=== PATIENT | male | born 1950 | race African-American/Black ===

== ENCOUNTER 2018-08-31 18:24 | Inpatient (IN) | payer MEDICARE ==
[~2018-08-31 18:24] MED LIST: ISOVUE-370 76%-LOCM 1 ML ONE
[2018-08-31] MEDS ORDERED: Pantoprazole 40 MG VIAL ONE (19:02)
[2018-08-31 19:29] LABS: #Monocytes 0.3 thou/uL (0.11-0.59); %Basophils 0.4 % (0.0-1.0); %Eosinophils 0.3 % (0.0-10.0); %Lymphocytes 10.9 % (21.0-51.0); %Monocytes 3.1 % (0.0-10.0); %Neutrophils 85.4 % (42.0-75.0); Hemoglobin 14.9 g/dL (14.0-18.0); Mean Corpuscular HGB CONC 31.9 g/dL (32.0-36.0); Mean Corpuscular Hemoglobin 26.9 pg (27.0-31.0); Mean Corpuscular Volume 84.4 fL (78.0-98.0); Mean Platelet Volume 8.5 fL (7.4-10.4); Platelet Count 218 thou/uL (130-400); RBC Distribution Width 13.4 % (11.5-14.5); Red Blood Cell (RBC) Count 5.54 mill/uL (4.70-6.10); White Blood Cell (WBC) Count 9.4 thou/uL (4.8-10.8)
[2018-08-31 19:45] LABS: ALT (SGPT) 19 U/L (8-55); AST (SGOT) 24 U/L (5-34); Albumin 4.8 g/dL (3.4-4.8); Alkaline Phosphatase 103 U/L (40-150); Anion Gap 19 mmol/L (10-20); BUN (Urea Nitrogen) 20 mg/dL (8.4-25.7); Calc. Creatinine Clearance 0 mL/min (70-130); Calcium 10.3 mg/dL (7.8-10.44); Carbon Dioxide 23 mmol/L (23-31); Chloride 98 mmol/L (98-107); Estimated GFR-MDRD 61; Globulin 3.9 g/dL (2.4-3.5); Glucose 169 mg/dL (80-115); Lipase 24 U/L (8-78); Potassium 4.8 mmol/L (3.5-5.1); Protein, Total 8.7 g/dL (5.8-8.1); Sodium 135 mmol/L (136-145)
--- NOTE | 2018-08-31 20:28 | ULT ---
RIGHT UPPER QUADRANT ULTRASOUND: 08/31/18 COMPARISON: None. HISTORY: Pain. TECHNIQUE: Multiplanar rubi scale sonographic imaging of the right upper quadrant obtained. FINDINGS: Pancreas is not well visualized secondary to bowel gas. No focal liver lesion is evident. There is trace free fluid adjacent to the liver. No gallbladder wall thickening or pericholecystic fluid. No gallstones are seen. The common bile duct measures 5 mm, within normal limits. Right kidney measures 9.4 cm craniocaudal dimension and demonstrates no stone, hydronephrosis or mass . Trace ascites noted in right lower quadrant. Prominent loops of small bowel are seen in the lower abd omen. The design chief reports a negative Tapia's sign. IMPRESSION: Small volume free fluid adjacent to the liver. No evidence for cholelithiasis, cholecystitis or bilia ry dilatation. POS: [facility]
--- NOTE | 2018-08-31 20:48 | CT ---
CT ABDOMEN AND PELVIS WITH IV CONTRAST 08/31/18 HISTORY: Abdominal pain. Nausea and vomiting. FINDINGS: Mild atelectasis at the lung bases. Calcified granulomata throughout the solid organs. Tiny cysts of the left kidney. Pancreas is diffusely prominent without focal mass evident. Moderately dilated loops of small bowel within the left abdomen measures up to 3 cm diameter. There is transition to decompre ssed bowel, favored to be in the left mid abdomen. Small amount of free fluid within the left lateral abdomen. IMPRESSION: High grade recent onset proximal to mid small bowel obstruction. Transition point favored to be withi n the left abdomen. Cause is not readily apparent. Possible adhesion. POS: [facility]
[2018-08-31] MEDS ORDERED: Ondansetron HCl/PF 4 MG/2 ML Vial ONE (21:11)
[2018-08-31] MEDS ORDERED: Morphine 2 MG/ML SYRINGE ONE (21:19)
[2018-08-31] MEDS ORDERED: Dextrose 50% Abboject 50 ML SYRINGE SLOW IVP PRN (21:28)
[2018-08-31] MEDS ORDERED: Dextrose 5% in Water 1,000 ML IV PRN (21:28)
[2018-08-31] MEDS ORDERED: HumaLOG 300 UNITS/3 ML VIAL SC PRN (21:28)
[2018-08-31] MEDS: Sodium Chloride 0.9% 1,000 ML IV SCH (23:22)
[2018-08-31] MEDS: Ondansetron HCl/PF 4 MG/2 ML Vial IVP PRN (23:22)
[2018-08-31] MEDS: Morphine 2 MG/ML SYRINGE SLOW IVP PRN (23:55)
[2018-09-01 01:34] VITALS: BMI 30.7
[2018-09-01] MEDS: Morphine 2 MG/ML SYRINGE SLOW IVP PRN ×3 (04:01→12:14)
[2018-09-01] MEDS ORDERED: Levothyroxine 100 MCG SDV IVP SCH (06:00)
[2018-09-01 06:21] LABS: #Lymphocytes 1.3 thou/uL (1.20-3.40); #Monocytes 0.7 thou/uL (0.11-0.59); #Neutrophils 7.3 thou/uL (1.40-6.50); %Basophils 0.3 % (0.0-1.0); %Eosinophils 0.3 % (0.0-10.0); %Monocytes 7.6 % (0.0-10.0); %Neutrophils 77.7 % (42.0-75.0); Hemoglobin 14.1 g/dL (14.0-18.0); Mean Corpuscular Hemoglobin 26.9 pg (27.0-31.0); Mean Corpuscular Volume 84.2 fL (78.0-98.0); Mean Platelet Volume 8.6 fL (7.4-10.4); Platelet Count 215 thou/uL (130-400); RBC Distribution Width 13.3 % (11.5-14.5); Red Blood Cell (RBC) Count 5.25 mill/uL (4.70-6.10); White Blood Cell (WBC) Count 9.4 thou/uL (4.8-10.8)
--- NOTE | 2018-09-01 06:30 | HP ---
CHIEF COMPLAINT: Right-sided abdominal pain. HISTORY OF PRESENT ILLNESS: This is a 67-year-old male with past medical history of diabetes mellitu s type 2, hypertension, hypothyroidism, presenting with right-sided abdominal pain. Per the patient, the night prior to admission, he ate a lot of Nachos and he feels like he ate a lot of it and when kobe barker woke up in the morning around 4:00 a.m., he started having severe abdominal pain which the patient stated that he vomited nonbilious, nonbloody vomitus and patient then became very uncomfortable and h is pain became uncontrollable. Patient states that he then [facility] and kaylie robles was given Zofran; however, after taking Zofran, patient did not feel better. Patient also state d that the ED physician at the local emergency room that he went to told that his pain was coming fro m his gallbladder; however, because patient did not feel better after taking Zofran and things were n ot improving, prompted the patient to come to our ED and patient currently denies any fever, headache s, dizziness, chest pain, palpitation, hematuria, hematochezia, diarrhea, constipation; however, the patient endorses right-sided abdominal pain. REVIEW OF SYSTEMS: Positive for nausea, right-sided abdominal pain, otherwise as documented in the H PI, all other systems were reviewed and are negative. PAST MEDICAL HISTORY: Diabetes mellitus type 2, hypertension, hypothyroidism. FAMILY HISTORY: Reviewed and noncontributory. PAST SURGICAL HISTORY: Patient had a hernia repair when he was 7 years old. PSYCHIATRIC HISTORY: No previous psychiatric history. SOCIAL HISTORY: Patient denies alcohol use, illicit drug use and tobacco use. ALLERGIES: No known drug allergies. CURRENT MEDICATIONS: Patient takes metformin 1000 mg, glipizide, lisinopril 10 mg, hydrochlorothiazi de, hydralazine, levothyroxine 100 mcg, finasteride, potassium chloride, aspirin. PHYSICAL EXAMINATION: VITAL SIGNS: Blood pressure is 184/106, pulse is 64, respiratory rate of 16, temperature of 98.3, O2 saturation of 97%. GENERAL: Patient is lying in bed with NG tube in place, speaking in full sentences, does not appear to be in any acute distress. HEENT: Normocephalic, atraumatic. Pupils are equally round and reactive to light. Extraocular move ments are intact. No scleral icterus. No conjunctival pallor. Patient has an NG tube through his n ostrils. NECK: Trachea is midline. No JVD. Full range of motion. RESPIRATORY: Clear to auscultation bilaterally. No wheezing, no rales, no rhonchi is appreciated. CARDIOVASCULAR: Positive S1, S2, regular rate and rhythm, no murmurs, no gallops or rubs appreciated . ABDOMEN: Tenderness at the right upper quadrant with light palpation. Negative for McBurney's sign. Negative for Tapia sign. No peritoneal signs noted. No guarding. EXTREMITIES: Upper extremities, patient has 5/5 upper extremity strength and 5/5 lower extremity str ength, good pulses bilaterally at the upper and lower extremities. NEUROLOGIC: Cranial nerves II-XII grossly intact. No neurologic deficits noted. SKIN: Warm, dry and intact. PSYCHIATRIC: Patient has normal affect, alert and oriented x3. EKG normal sinus rhythm with a rate of 62. IMAGING: CT of the abdomen shows high grade small-bowel obstruction onset proximal to mid small-farhan l obstruction, transition point favored to be within the left abdomen. Ultrasound showed small volum e free fluid adjacent to the liver. No evidence of cholelithiasis, cholecystitis, or biliary dilatat ion. ED COURSE: The patient received morphine 4 mg, Zofran 8 mg, Protonix 40 mg, normal saline. LABORATORY DATA: WBC is 9.4, hemoglobin is 14.9, hematocrit 46.7, platelet count of 218. Sodium is 135, potassium is 4.8, chloride is 98, carbon dioxide of 23, BUN is 20, creatinine is 1.39, lipase of 24, AST 24, ALT is 19. ASSESSMENT AND PLAN: This is a 67-year-old male being admitted for: 1. Abdominal pain secondary to small-bowel obstruction confirmed on CT of the abdomen and pelvis. P atient has NG tube in place on suction. Oral Surgery has been consulted. At this point, we will nithin e patient n.p.o. We were able to get patient bowel rest. We will continue supportive care with norm al saline. 2. Acute kidney injury, likely secondary to dehydration. At this point, we are going to continue IV hydration. We are going to monitor the patient. 3. History of diabetes mellitus. Continue the patient on insulin sliding scale. 4. Hypothyroidism. Patient is currently n.p.o. We will start patient on his home medications once the patient is able to tolerate p.o. 5. Hypertension. Currently, we will monitor the patient's blood pressure. I will give patient IV b lood pressure medication as needed. 6. Deep venous thrombosis and gastrointestinal prophylaxis. We will do SCDs and Pepcid. This case has been dictated by Dr. Nilson Torres on patient, [facility] [place].
[2018-09-01 06:35] LABS: Albumin 3.9 g/dL (3.4-4.8); Anion Gap 12 mmol/L (10-20); BUN (Urea Nitrogen) 20 mg/dL (8.4-25.7); BUN/Creatinine Ratio 15.27; Calc. Creatinine Clearance 68 mL/min (70-130); Calcium 9.1 mg/dL (7.8-10.44); Carbon Dioxide 26 mmol/L (23-31); Chloride 102 mmol/L (98-107); Estimated GFR-MDRD 66; Glucose 142 mg/dL (80-115); Phosphorus 4.5 mg/dL (2.3-4.7); Potassium 4.3 mmol/L (3.5-5.1); Sodium 136 mmol/L (136-145)
[2018-09-01] MEDS: Famotidine/PF 20 mg/2ml Vial SLOW IVP SCH ×2 (08:21→20:07)
[2018-09-01] MEDS: Ondansetron HCl/PF 4 MG/2 ML Vial IVP PRN ×2 (08:22→17:20)
[2018-09-01] MEDS: hydrALAZINE 20 MG/ML VIAL SLOW IVP PRN ×2 (10:19→21:10)
[2018-09-01] MEDS: Enoxaparin Sodium 40 MG/0.4 ML SYRINGE SC SCH ×2 (10:21→10:34)
[2018-09-01] MEDS: Sodium Chloride 0.9% 1,000 ML IV SCH ×2 (10:21→16:49)
[2018-09-01] MEDS ORDERED: cloNIDine 0.2mg/24 Hour PATCH TD SCH (11:00)
--- NOTE | 2018-09-01 12:45 | PDOC.EVN ---
Event Note - Event Note Event Note: Patient seen and examined. Diminished bowel sounds, but not tender. NGT in place. Continue NGT to suction, IVF. Surg consult pending.
[2018-09-01] MEDS ORDERED: MD-Gastroview 120 ML BOT ONE (13:37)
--- NOTE | 2018-09-01 15:33 | PDOC.PN ---
- Subjective Encounter Start Date: 09/01/18 Encounter Start Time: 11:05 Feeling better in general. He has less abdominal discomfort. - Objective Resuscitation Status: Resuscitation Status FULL:Full Resuscitation Vital Signs & Weight: Vital Signs (12 hours) Temp Pulse Resp BP BP Pulse Ox 09/01/18 10:50 98.1 F 63 20 168/112 H 96 09/01/18 10:19 60 181/100 H 09/01/18 08:20 93 L 09/01/18 07:55 98.5 F 60 16 177/103 H 93 L Weight Weight 195 lb 15.855 oz I&O: 08/31/18 09/01/18 09/02/18 06:59 06:59 06:59 Intake Total 640 400 Output Total 1000 Balance -360 400 Result Diagrams: 09/01/18 05:24 09/01/18 05:24 Additional Labs: Accuchecks 09/01/18 10:49 POC Glucose 119 H Phys Exam - Physical Examination Constitutional: NAD NGT in place Respiratory: no wheezing, no rales, no rhonchi, clear to auscultation bilateral Cardiovascular: RRR, no significant murmur, no rub Gastrointestinal: soft, non-tender, no distention diminished bowel sounds. Dx/Plan (1) SBO (small bowel obstruction) Code(s): K56.609 - UNSP INTESTNL OBST, UNSP TO PARTIAL VERSUS COMPLETE OBST Status: Acute Comment: NGT. Bowel rest, IVF, pain management. Surgery consult. (2) Hypertension Code(s): I10 - ESSENTIAL (PRIMARY) HYPERTENSION Status: Acute Comment: Add catapress patch since he cannot take po's now. IV Hydralazine PRN. - Plan * above.
[2018-09-01] MEDS ORDERED: Acetaminophen 500 MG TAB PO SCH (19:30)
[2018-09-01] MEDS: traMADol HCl 50 MG TAB PO PRN ×2 (19:42→22:12)
[2018-09-01] MEDS ORDERED: Acetaminophen 1,000 MG in Premix Bag 1 BAG IVPB SCH (19:45)
[2018-09-01] MEDS ORDERED: Ondansetron HCl/PF 4 MG/2 ML Vial IVP SCH (20:00)
--- NOTE | 2018-09-01 22:49 | CON ---
DATE OF CONSULTATION: 09/01/2018 REQUESTING PHYSICIAN: NOÉ Rodney. HISTORY OF PRESENT ILLNESS: This is a 67-year-old man with history of type 2 diabet es mellitus, hypothyroidism, and essential hypertension. [facility] what started as low abdominal pain, after he had dinner consisting of nachos 3 days previously. The pain was described as crampy, associated with multiple episodes of nausea and emesis. Patient was seen in the emergency department, treated with antiemetics without resolution. Workup was obtained to exclude biliary disease. Upon presentation in the emergency department at this time, patient reports 10/10 abdominal pain. De nies any fevers or chills. Last bowel movement was yesterday. Last time, he passed flatus was also yesterday. Denies any diarrhea, hematochezia, or melena. The patient denies any unexplained weight loss. PAST MEDICAL HISTORY: As stated as type 2 diabetes mellitus, hypothyroidism, and essential hypertens ion. SURGICAL HISTORY: Pertinent for childhood left inguinal herniorrhaphy. SOCIAL HISTORY: Patient lives independently. He denies any cigarette smoking, ethanol, or illicit d rug abuse. FAMILY HISTORY: Patient denies any family history of inflammatory bowel disease, cancer, heart disea se, or diabetes mellitus. CURRENT MEDICATIONS: Includes aspirin 81 mg p.o. daily, finasteride 1 mg p.o. daily, glipizide 10 mg p.o. daily, hydrochlorothiazide 100 mg p.o. daily, metformin 1000 mg p.o. q.a.m., potassium chloride 15 mEq p.o. daily, levothyroxine 100 mcg p.o. daily, lisinopril 10 mg p.o. daily. ALLERGIES: Patient denies any known drug allergies. REVIEW OF SYSTEMS: Ten-point review of systems essentially unremarkable except for as stated in past medical history and chief complaint. PHYSICAL EXAMINATION: GENERAL: This reveals a 67-year-old normally developed man who is otherwise coherent and interactive and appears stated age. Patient is alert and oriented x3. He appears to be in no acute distress at the time of my evaluation. VITAL SIGNS: Currently includes blood pressure 168/90, pulse 67, respiratory rate is 18, temperature is 98.5 degrees Fahrenheit, oxygen saturation 93% on room air. HEENT: Reveals normocephalic and atraumatic. HEART: Reveals regular rate and rhythm. No murmurs or gallops auscultated. LUNGS: Clear to auscultation bilaterally. Breathing regular and unlabored. ABDOMEN: Soft and obese. He had no abdominal tenderness to palpation. Bowel sounds in all four shanel drants appear normoactive. Nasogastric tube which was placed on this admission is returning a very s cant, but bile-tinged gastric effluent. PERTINENT LABORATORY FINDINGS: Today includes CBC with 9400 white blood cells, hemoglobin and hemato crit 14.1 and 44.1 respectively. Platelet count 215,000. Metabolic profile: Sodium 136, potassium is 4.3, chloride is 102, bicarbonate is 26, BUN 20, creatinine is 1.31 and stable. Glucose is 142. I have personally reviewed the CT scan of the abdomen and pelvis, which was obtained yesterday which reveals multiple distended loops of mid to proximal small bowel with no clear transition zone. There is minimum free fluid in the peritoneal cavity. There is no pneumoperitoneum present. I also revie wed the gallbladder ultrasound obtained yesterday as well, which does not reveal any gallstones. The re is no gallbladder wall thickening or pericholecystic fluid present. Common bile duct is normal in diameter for this patient age at 5 mm. IMPRESSION: Vague abdominal pain with no clinical evidence of acute bowel obstruction at this time. We will remove nasogastric tube and initiate clear liquid diet. The patient fails to tolerate this, we will consider small bowel follow through to definitively exclude small-bowel obstruction. RECOMMENDATIONS: Clearly, there is no acute surgical indication for this patient at this time. Both findings and plan discussed with the patient who indicates understanding of the information given. I have answered his questions.
--- NOTE | 2018-09-01 23:31 | RAD ---
SMALL BOWEL FOLLOW THROUGH 09/01/18 COMPARISON: CT abdomen and pelvis 08/31/18. HISTORY: Small bowel obstruction noted on prior CT exam. FINDINGS: Tray Drier Operator radiograph of the abdomen demonstrates gaseous distention of small bowel within the mid abdomen . There is a rounded area of density overlying the lower pelvis on frontal imaging which may represent contrast media within the urinary bladder. The patient then ingested gastrografin and the contrast media is followed through the small bowel. On immediate post ingestion imaging there is contrast medial within the stomach and proximal nondilated small bowel. The majority of the proximal small bowel is unremarkable but the mid small bowel is dis tended. There is extensive dilated distal small bowel seen throughout the examination. The study is p erformed through five hours and the contrast media does not reach the colon by five hours, evidence o f high grade small bowel obstruction, as seen on prior CT. Followup KUB on the morning of 09/02/18 is suggested. Please note that on the five hour post ingestion imaging there is significant residual con trast media within a distended stomach as well as numerous distended loops of small bowel. IMPRESSION: Findings consistent with high grade small bowel obstruction as seen on the CT exam performed 08/31/18. Code T POS: [facility]
[2018-09-01] MEDS: Acetaminophen 500 MG TAB PO SCH (23:37)
[2018-09-02] MEDS ORDERED: Morphine 2 MG/ML SYRINGE SLOW IVP SCH (01:30)
[2018-09-02] MEDS: hydrALAZINE 20 MG/ML VIAL SLOW IVP PRN (03:59)
[2018-09-02] MEDS: Ondansetron HCl/PF 4 MG/2 ML Vial IVP PRN (04:59)
[2018-09-02] MEDS ORDERED: Hydrochlorothiazide 25 MG TAB PO SCH (05:30)
[2018-09-02] MEDS ORDERED: hydrALAZINE 25 MG TAB PO SCH (05:30)
[2018-09-02] MEDS ORDERED: Lisinopril 20 MG TAB PO SCH (05:30)
[2018-09-02] MEDS: Acetaminophen 500 MG TAB PO SCH ×2 (05:57→11:46)
[2018-09-02] MEDS: Levothyroxine Sodium 100 MCG TAB PO SCH (05:57)
[2018-09-02] MEDS ORDERED: Verapamil 120 MG TAB PO SCH (06:15)
[2018-09-02] MEDS ORDERED: Promethazine HCl 25 MG/ML VIAL IM PRN (08:13)
[2018-09-02] MEDS: Famotidine/PF 20 mg/2ml Vial SLOW IVP SCH ×2 (08:36→20:33)
[2018-09-02] MEDS: Enoxaparin Sodium 40 MG/0.4 ML SYRINGE SC SCH (08:36)
--- NOTE | 2018-09-02 08:56 | RAD ---
ABDOMEN 1 VIEW: HISTORY: Small bowel obstruction. COMPARISON: CT and a small bowel follow through of prior day. FINDINGS: There is contrast throughout the small bowel and stomach. No contrast is seen within the rectum. No definite left colon contrast. There is possibly some contrast in the right colon. IMPRESSION: Possibly some contrast in the right colon, although this is still likely a high-grade partial small b owel obstruction. POS: [facility]
[2018-09-02] MEDS ORDERED: Lisinopril 10 MG TAB PO SCH (09:00)
[2018-09-02] MEDS: hydrALAZINE 25 MG TAB PO SCH ×2 (11:12→20:34)
[2018-09-02] MEDS: Hydrochlorothiazide 25 MG TAB PO SCH (11:13)
[2018-09-02] MEDS: Lisinopril 20 MG TAB PO SCH (11:13)
[2018-09-02] MEDS: Sodium Chloride 0.9% 1,000 ML IV SCH (11:13)
[2018-09-02] MEDS ORDERED: Ondansetron HCl/PF 4 MG/2 ML Vial IVP PRN (11:22)
--- NOTE | 2018-09-02 11:53 | PDOC.PN ---
- Subjective Encounter Start Date: 09/02/18 Encounter Start Time: 11:25 Had large amount of NGT output overnight. Feels much better subsequent. Still has some output that is now bloody. - Objective Resuscitation Status: Resuscitation Status FULL:Full Resuscitation Vital Signs & Weight: Vital Signs (12 hours) Temp Pulse Resp BP BP Pulse Ox 09/02/18 11:12 94 09/02/18 07:30 97.2 F L 94 20 164/94 H 92 L 09/02/18 07:14 172/122 H 09/02/18 05:56 94 09/02/18 05:55 166/115 H 09/02/18 04:36 94 166/114 H 09/02/18 04:00 98 F 88 18 185/126 H 95 09/02/18 03:59 88 185/126 H 09/02/18 00:00 98.9 F 85 16 160/92 H 96 Weight Weight 195 lb 15.855 oz I&O: 09/01/18 09/02/18 09/03/18 06:59 06:59 06:59 Intake Total 640 1900 Output Total 1000 220 Balance -360 1680 Result Diagrams: 09/01/18 05:24 09/01/18 05:24 Additional Labs: Accuchecks 09/02/18 09/01/18 09/01/18 05:41 20:01 15:45 POC Glucose 179 H 162 H 97 Phys Exam - Physical Examination Constitutional: NAD Respiratory: no wheezing, no rales, no rhonchi, clear to auscultation bilateral Cardiovascular: RRR, no significant murmur, no rub Gastrointestinal: soft, non-tender diminished breath sounds. Musculoskeletal: no edema Psychiatric: normal affect, A&O x 3 Dx/Plan (1) SBO (small bowel obstruction) Code(s): K56.609 - UNSP INTESTNL OBST, UNSP TO PARTIAL VERSUS COMPLETE OBST Status: Acute Comment: To OR today for expl lap. (2) Hypertension Code(s): I10 - ESSENTIAL (PRIMARY) HYPERTENSION Status: Acute Comment: Added catapress patch since he cannot take po's now. IV Hydralazine PRN. BP has been intermittently very high, but suspect related to discomfort. Better this morning. - Plan * above.
[2018-09-02] MEDS ORDERED: Ertapenem 1 GM in Sodium Chloride 0.9% 100 ML IVPB SCH (12:00)
[2018-09-02] MEDS ORDERED: Fentanyl 100 MCG/2 ML VIAL ONE ×2 (12:00→12:12)
[2018-09-02] MEDS ORDERED: Dextrose 5% in Water 1,000 ML IV PRN (14:30)
[2018-09-02] MEDS ORDERED: Morphine 4 MG/ML VIAL SLOW IVP PRN (14:30)
[2018-09-02] MEDS ORDERED: Dextrose 50% Abboject 50 ML SYRINGE SLOW IVP PRN (14:30)
[2018-09-02] MEDS ORDERED: Lidocaine 1% PF 5 ML VIAL ONE (14:36)
[2018-09-02] MEDS ORDERED: ePHEDrine/0.9% NaCl/PF SYRINGE 50 mg/10 ml ONE (14:36)
[2018-09-02] MEDS ORDERED: Succinylcholine Chloride 20 MG/ML 10 ml SYRINGE FS ONE (14:36)
[2018-09-02] MEDS ORDERED: Ondansetron HCl/PF 4 MG/2 ML Vial ONE (14:36)
[2018-09-02] MEDS ORDERED: PROPOFOL 200 MG/20 ML VIAL ONE (14:36)
[2018-09-02] MEDS ORDERED: Glycopyrrolate 0.2 MG/ML 5 ML SYRINGE ONE (14:36)
[2018-09-02] MEDS ORDERED: PHENYLEPHRINE-NS 100 MCG/ML 10 ML SYRINGE ONE (14:36)
[2018-09-02] MEDS: Lactated Ringer's 1,000 ML IV SCH (15:40)
[2018-09-02] MEDS: Piperacillin/Tazobactam 3.375 GM in Sodium Chloride 0.9% 100 ML IVPB SCH ×2 (15:40→22:14)
[2018-09-02] MEDS: Acetaminophen 1,000 MG in Premix Bag 1 BAG IVPB SCH ×2 (17:49→23:36)
--- NOTE | 2018-09-02 18:16 | OP ---
DATE OF OPERATION: 09/02/2018 PREOPERATIVE DIAGNOSIS: Acute small-bowel obstruction. POSTOPERATIVE DIAGNOSES: Acute bowel obstruction secondary to internal hernia incarceration secondar y to adhesive band. OPERATIONS PERFORMED: 1. Exploratory laparotomy. 2. Lysis of adhesions. SURGEON: Arash Levy D.O. ANESTHESIA: General endotracheal. ESTIMATED BLOOD LOSS: 20 mL. FLUIDS GIVEN: 650 mL crystalloids. URINARY OUTPUT: 250 mL. COUNTS: Sponge and instrument count certified as correct x2. COMPLICATIONS: None apparent at the time of operation. INDICATIONS FOR PROCEDURE: A 67-year-old -[place] man who was admitted 2 days previously wit h acute onset abdominal pain. Clinical and a graphic examination was consistent with acute small-bow el obstruction for which patient was brought to the operating room today for laparotomy. Findings are consistent with acute incarcerated internal hernia. This was secondary to adhesive band . DESCRIPTION OF PROCEDURE: Informed consent obtained from the patient who was brought to the operatin g room and placed in supine position. Following general anesthesia, the abdomen is sterilely prepped and draped in the usual fashion after the Rincon catheter was inserted and placed bedside drain. Mid line incision is made using #10 scalpel. Incision was carried through subcutaneous tissues maintaini ng hemostasis using thermocautery. Fascia was incised in midline along the line of incision exposing the peritoneum beneath which was grasped x2 with hemostats. The peritoneal cavity was sharply enter ed using Metzenbaum scissors. Incision was then extended superiorly and inferiorly. Chandra retr actor was put in place to gain exposure. Small bowel was run from ligament of Treitz down to distal ileum where a loop of bowel is trapped in an internal hernia from an adhesive band. The band was exc ised. A clear transition zone is noted at the internal hernia. Distal to this, the bowel was marked ly decompressed. I inspected the remainder of the small bowel to the terminal ileum. The large farhan l was inspected from the cecum through the ascending, transverse, descending, sigmoid colon and rectu m. No palpable masses present. The previous nasogastric tube was palpated within the gastric lumen. Finding no other pathology, the adhesive band was excised. Abdominal cavity was irrigated with josé miguel ine after over 1 liter of blood tinged hemorrhagic ascites as evacuated. Small bowel was then return ed to normal anatomic location. Omentum was drawn over the remainder of the viscera. Fascia was michelle roximated in the midline using a running stitch of #1 single stranded PDS. Subcutaneous tissues irri gated clear with saline perfected hemostasis using cautery. Deep tissues approximated using interrup jessee sutures of 3-0 Vicryl. Skin incision was closed in the midline using a running stitch of 3-0 Mon ocryl suture in subcuticular fashion. Dermabond was applied over the incision to closure. The patie nt tolerated the operation without any apparent complications and was returned to recovery room in sa tisfactory condition.
[2018-09-02] MEDS: Pantoprazole 40 MG VIAL IVP SCH (20:33)
[2018-09-02] MEDS: Verapamil 120 MG TAB PO SCH (20:34)
[2018-09-02] MEDS: Morphine 2 MG/ML SYRINGE IVP PRN (20:42)
[2018-09-03] MEDS: Lactated Ringer's 1,000 ML IV SCH ×4 (01:11→22:11)
[2018-09-03] MEDS: Morphine 2 MG/ML SYRINGE IVP PRN (03:35)
[2018-09-03] MEDS: Piperacillin/Tazobactam 3.375 GM in Sodium Chloride 0.9% 100 ML IVPB SCH ×4 (03:36→22:13)
[2018-09-03 06:01] LABS: #Lymphocytes 1.1 thou/uL (1.20-3.40); #Monocytes 0.8 thou/uL (0.11-0.59); #Neutrophils 4.3 thou/uL (1.40-6.50); %Basophils 0.7 % (0.0-1.0); %Eosinophils 0.1 % (0.0-10.0); %Lymphocytes 17.5 % (21.0-51.0); %Monocytes 12.7 % (0.0-10.0); %Neutrophils 69.1 % (42.0-75.0); Mean Corpuscular HGB CONC 32.1 g/dL (32.0-36.0); Mean Corpuscular Hemoglobin 27.3 pg (27.0-31.0); Mean Corpuscular Volume 84.8 fL (78.0-98.0); Mean Platelet Volume 8.4 fL (7.4-10.4); Platelet Count 177 thou/uL (130-400); RBC Distribution Width 13.3 % (11.5-14.5); White Blood Cell (WBC) Count 6.2 thou/uL (4.8-10.8)
[2018-09-03] MEDS: Acetaminophen 1,000 MG in Premix Bag 1 BAG IVPB SCH ×3 (06:01→17:19)
[2018-09-03] MEDS: Levothyroxine Sodium 100 MCG TAB PO SCH (06:05)
[2018-09-03 06:12] LABS: Anion Gap 11 mmol/L (10-20); BUN (Urea Nitrogen) 31 mg/dL (8.4-25.7); Calc. Creatinine Clearance 63 mL/min (70-130); Calcium 8.5 mg/dL (7.8-10.44); Carbon Dioxide 26 mmol/L (23-31); Chloride 106 mmol/L (98-107); Estimated GFR-MDRD 60; Glucose 149 mg/dL (80-115); Potassium 3.9 mmol/L (3.5-5.1); Sodium 139 mmol/L (136-145)
[2018-09-03] MEDS: Pantoprazole 40 MG VIAL IVP SCH ×2 (08:49→20:30)
[2018-09-03] MEDS: Enoxaparin Sodium 40 MG/0.4 ML SYRINGE SC SCH (08:50)
[2018-09-03] MEDS: Lisinopril 20 MG TAB PO SCH (09:41)
[2018-09-03] MEDS: hydrALAZINE 25 MG TAB PO SCH ×2 (09:41→20:30)
[2018-09-03] MEDS: Hydrochlorothiazide 25 MG TAB PO SCH (09:41)
[2018-09-03] MEDS: Verapamil 120 MG TAB PO SCH ×2 (09:41→22:07)
[2018-09-03] MEDS ORDERED: traMADol HCl 50 MG TAB PO PRN (12:45)
--- NOTE | 2018-09-03 13:31 | PRG-2 ---
DATE OF SERVICE: 09/03/2018 SUBJECTIVE: Patient is a 67-year-old -[place] gentleman with a past medical history significant for type 2 diabetes, hypothyroidism, and hypertension who is hospital day #4, originally admitted for a small-bowel obstruction identified on CT. He is postop day #1 status post exploratory laparotomy and lysis of adhesions to relieve his small-bowel obstruction which was secondary to an internal hernia incarceration secondary to an adhesive band. The patient tolerated the procedure well with no complications. There were no acute events overnight. However, the patient was noted to have almost 5 liters of output via his NG tube overnight. On exam, the patient states his pain has been well controlled and he was able to walk with physical therapy this morning without much trouble. He is tolerating a clear liquid diet. He has not yet had a bowel movement. PHYSICAL EXAMINATION: VITAL SIGNS: Temperature 97.4 degrees Fahrenheit, pulse 79, respirations 18, O2 sat 94% on room air, blood pressure 114/78. GENERAL: The patient is a well-developed -[place] gentleman who appears stated age. He is sitting up comfortably in bed in no acute distress. HEENT: Normocephalic, atraumatic. CARDIOVASCULAR: Regular rate and rhythm, no murmurs. LUNGS: Clear to auscultation bilaterally. Symmetric chest rise and unlabored breathing noted. ABDOMEN: Soft and mildly distended. No significant tenderness to palpation. Bowel sounds noted. Nasogastric tube in place with about 600 mL of bile tinge gastric fluid noted in the canister. LABORATORY DATA: White blood count 6.2, hemoglobin 12.0, hematocrit 37.3, platelet count 177. Sodium 139, potassium 3.9, chloride 106, bicarbonate 26, BUN 31, creatinine 1.41, blood glucose 149, calcium 8.5. RADIOLOGIC DATA: There is no new radiologic data for review. ASSESSMENT AND PLAN: 1. Small-bowel obstruction, resolved. 2. Postop day #1 status post exploratory laparotomy and lysis of adhesions to relieve small bowel obstruction secondary to an internal hernia incarceration secondary to an adhesive band. 3. Postoperative pain. 4. Acute kidney injury. 5. History of hypertension. 6. History of hypothyroidism. 7. History of type 2 diabetes mellitus. PLAN: We will start on p.o. postop pain control today. We will continue with clear liquid diet for the course of today and allow patient to take home meds and other medications with sips of water. We will keep an NG tube in place today as the patient had almost 5 liters of output overnight. We will continue PT or will continue walking program. We will continue on lactated Ringer's at 125 mL an hour while patient's p.o. intake is decreased. We will continue to monitor his renal function with repeat BMP tomorrow morning. We will continue with routine deep vein thrombosis and gastrointestinal prophylaxis. We will remove his Rincon catheter today. This patient was seen by and the plan was discussed with the trauma attending, Dr. Jose Manuel Metcalf. EDUARDO
[2018-09-03] MEDS: Acetaminophen 500 MG TAB PO SCH ×2 (13:47→17:24)
--- NOTE | 2018-09-03 15:27 | PDOC.PN ---
- Subjective Encounter Start Date: 09/03/18 Encounter Start Time: 15:25 Mr. Oliva was seen today in follow-up of SBO. He does not have any complaints. He says the abdominal pain is controlled. He has tolerated ice chips. - Objective Resuscitation Status: Resuscitation Status FULL:Full Resuscitation MAR Reviewed: Yes Vital Signs & Weight: Vital Signs (12 hours) Temp Pulse Resp BP Pulse Ox 09/03/18 11:00 98.6 F 73 16 123/83 93 L 09/03/18 07:53 97.4 F L 79 18 114/78 94 L 09/03/18 03:58 98.3 F 91 16 118/80 94 L Weight Weight 195 lb 15.855 oz I&O: 09/02/18 09/03/18 09/04/18 06:59 06:59 06:59 Intake Total 1900 2725 Output Total 220 6490 Balance 1680 -3765 Result Diagrams: 09/03/18 05:33 09/03/18 05:34 Additional Labs: Accuchecks 09/03/18 09/03/18 09/02/18 10:30 05:49 15:45 POC Glucose 129 H 144 H 126 H Phys Exam - Physical Examination HEENT: PERRLA NG tube in place Respiratory: no wheezing, no rales, no rhonchi, clear to auscultation bilateral Cardiovascular: RRR, no significant murmur, no rub no gallop Gastrointestinal: soft, positive bowel sounds + mild diffuse tenderness, mild distention, and hypoactive bowel sounds Musculoskeletal: no edema Psychiatric: normal affect, A&O x 3 Dx/Plan (1) Hypothyroidism Code(s): E03.9 - HYPOTHYROIDISM, UNSPECIFIED Status: Acute (2) Diabetes mellitus type 2 in nonobese Code(s): E11.9 - TYPE 2 DIABETES MELLITUS WITHOUT COMPLICATIONS Status: Acute (3) Hypertension Code(s): I10 - ESSENTIAL (PRIMARY) HYPERTENSION Status: Acute Comment: Added catapress patch since he cannot take po's now. IV Hydralazine PRN. BP has been intermittently very high, but suspect related to discomfort. Better this morning. (4) SBO (small bowel obstruction) Code(s): K56.609 - UNSP INTESTNL OBST, UNSP TO PARTIAL VERSUS COMPLETE OBST Status: Acute Comment: To OR today for expl lap. - Plan * SBO- s/p exploratory lap and lysis of adhesions- NG tube is in place, and Plan is for clear liquids later- Managed by General surgery * DM- Blood glucose is stable- continue SSI * HTN- blood pressure is stable- Lisinopril has been re-started * Hypothyroidism- clinically euthyroid- agree with re-starting Synthroid * Ambulate as tolerated .
[2018-09-04] MEDS: Acetaminophen 500 MG TAB PO SCH ×5 (00:43→23:27)
[2018-09-04] MEDS: Piperacillin/Tazobactam 3.375 GM in Sodium Chloride 0.9% 100 ML IVPB SCH (04:19)
[2018-09-04] MEDS: Levothyroxine Sodium 100 MCG TAB PO SCH (06:10)
[2018-09-04 06:11] LABS: Band 2 % (5-11); Eosinophils 2 % (0-10); Hemoglobin 10.4 g/dL (14.0-18.0); Hypochromia SLIGHT = 6-15 cells (100X) (0-5/hpf); Lymphocytes 40 % (21-51); MDiff Complete? YES; Mean Corpuscular Hemoglobin 26.6 pg (27.0-31.0); Mean Corpuscular Volume 85.9 fL (78.0-98.0); Mean Platelet Volume 8.2 fL (7.4-10.4); Monocytes 18 % (0-10); Neutrophil 38 % (42-75); PLT Morphology Comment Appears Adequate; Platelet Count 160 thou/uL (130-400); RBC Distribution Width 13.1 % (11.5-14.5); Red Blood Cell (RBC) Count 3.89 mill/uL (4.70-6.10); White Blood Cell (WBC) Count 4.5 thou/uL (4.8-10.8)
[2018-09-04 06:12] LABS: Anion Gap 11 mmol/L (10-20); BUN (Urea Nitrogen) 26 mg/dL (8.4-25.7); Calc. Creatinine Clearance 64 mL/min (70-130); Calcium 8.4 mg/dL (7.8-10.44); Carbon Dioxide 27 mmol/L (23-31); Chloride 105 mmol/L (98-107); Estimated GFR-MDRD 61; Glucose 121 mg/dL (80-115); Magnesium 2.1 mg/dL (1.6-2.6); Phosphorus 2.2 mg/dL (2.3-4.7); Potassium 3.6 mmol/L (3.5-5.1); Sodium 139 mmol/L (136-145)
[2018-09-04] MEDS: Lactated Ringer's 1,000 ML IV SCH ×2 (06:54→20:49)
[2018-09-04] MEDS: Pantoprazole 40 MG VIAL IVP SCH ×2 (07:59→20:28)
[2018-09-04] MEDS: Hydrochlorothiazide 25 MG TAB PO SCH (08:00)
[2018-09-04] MEDS: Enoxaparin Sodium 40 MG/0.4 ML SYRINGE SC SCH (08:00)
[2018-09-04] MEDS: Lisinopril 20 MG TAB PO SCH (08:01)
[2018-09-04] MEDS: hydrALAZINE 25 MG TAB PO SCH ×2 (08:01→20:50)
[2018-09-04] MEDS: Verapamil 120 MG TAB PO SCH ×2 (08:07→20:50)
--- NOTE | 2018-09-04 17:22 | PDOC.PN ---
- Subjective Encounter Start Date: 09/04/18 Encounter Start Time: 17:21 Mr. Oliva was seen today in follow-up of SBO and HTN. He does not have any complaints. - Objective Resuscitation Status: Resuscitation Status FULL:Full Resuscitation MAR Reviewed: Yes Vital Signs & Weight: Vital Signs (12 hours) Temp Pulse Resp BP BP BP Pulse Ox 09/04/18 15:36 97.5 F L 69 18 125/84 95 09/04/18 12:00 97.6 F 71 20 128/71 95 09/04/18 08:01 73 107/71 09/04/18 07:00 98.4 F 72 18 143/89 H 93 L Weight Weight 195 lb 15.855 oz I&O: 09/03/18 09/04/18 09/05/18 06:59 06:59 06:59 Intake Total 2725 3498 Output Total 6490 1365 Balance -3765 2133 Result Diagrams: 09/04/18 05:01 09/04/18 05:01 Additional Labs: Accuchecks 09/04/18 09/04/18 09/04/18 15:36 11:06 05:09 POC Glucose 101 101 108 09/03/18 09/02/18 20:15 20:41 POC Glucose 145 H 141 H Phys Exam - Physical Examination Respiratory: no wheezing, no rales, no rhonchi, clear to auscultation bilateral Cardiovascular: RRR, no significant murmur, no rub no gallop Gastrointestinal: soft, positive bowel sounds + mild distention + BS, and diffuse tenderness Musculoskeletal: no edema, pulses present Dx/Plan (1) Hypothyroidism Code(s): E03.9 - HYPOTHYROIDISM, UNSPECIFIED Status: Acute (2) Diabetes mellitus type 2 in nonobese Code(s): E11.9 - TYPE 2 DIABETES MELLITUS WITHOUT COMPLICATIONS Status: Acute (3) Hypertension Code(s): I10 - ESSENTIAL (PRIMARY) HYPERTENSION Status: Acute Comment: Added catapress patch since he cannot take po's now. IV Hydralazine PRN. BP has been intermittently very high, but suspect related to discomfort. Better this morning. (4) SBO (small bowel obstruction) Code(s): K56.609 - UNSP INTESTNL OBST, UNSP TO PARTIAL VERSUS COMPLETE OBST Status: Acute Comment: To OR today for expl lap. - Plan * SBO- s/p exploratory lap and lysis of adhesions- Surgery managing. He is still NPO, but NG tube has been clamped * HTN- blood pressure has been stable off medication so far- will continue to observe, and PRN medications * BPH- will re-start Proscar * DM- blood glucose is stable * Hypothyroidism- he is clinically euthyroid.
--- NOTE | 2018-09-04 22:33 | PRG ---
DATE OF SERVICE: 09/04/2018 SUBJECTIVE: Mr. Oliva is postoperative day #2, status post exploratory laparotomy and lysis of adhes ions for acute incarcerated internal hernia. The patient reports adequate pain control. He ambulates with minimum difficulty. He denies any flat us or bowel movement. He denies any nausea or vomiting. Nasogastric tube has been clamped since zaida and q.4 hours checks reveal less than 300 bile-tinged gastric effluent. OBJECTIVE: VITAL SIGNS: Today includes blood pressure 143/89, pulse 72, respiratory rate is 18, temperature 98. 4 degrees Fahrenheit, oxygen saturation 93% on room air. HEART: Reveals regular rate and rhythm, no murmurs or gallops auscultated. CHEST: Lungs are clear to auscultation bilaterally. Breathing regular and unlabored. ABDOMEN: Soft, moderately distended. Incision is intact, clean, and dry. He has incisional tendern ess to palpation, no gross peritoneal signs present. LABORATORY DATA: Today includes a CBC with 4500 white blood cells, hemoglobin and hematocrit stable at 10.4 and 33.5 respectively. Platelet count is 160,000. Differential counts as follows, 38% segme nted neutrophils, 2 bands, lymphocytes, 18 monocytes and 2 eosinophils. Metabolic profile: So dium 139, potassium 3.6, chloride is 105, bicarbonate 27, BUN 26, creatinine is 1.40 and stable. Glu cose is 121, magnesium 2.1, phosphorus 2.2. IMPRESSION: 1. Postoperative day #2 status post exploratory laparotomy with lysis of adhesions. 2. Acute hypokalemia. 3. Acute hypophosphatemia. PLAN: 1. Correct abnormal electrolytes. 2. Increase activity as tolerated. 3. Continue bowel rest and intermittent nasogastric tube decompression until return of bowel functio n. Above findings and plan discussed with the patient with information given. I answered his ques tions.
[2018-09-05] MEDS: Lactated Ringer's 1,000 ML IV SCH ×2 (04:56→11:26)
[2018-09-05] MEDS: Acetaminophen 500 MG TAB PO SCH ×4 (06:38→23:49)
[2018-09-05] MEDS: Levothyroxine Sodium 100 MCG TAB PO SCH (06:38)
[2018-09-05 07:56] LABS: Band 13 % (5-11); Eosinophils 3 % (0-10); Hemoglobin 9.9 g/dL (14.0-18.0); Lymphocytes 32 % (21-51); MDiff Complete? YES; Mean Corpuscular HGB CONC 31.6 g/dL (32.0-36.0); Mean Corpuscular Hemoglobin 26.9 pg (27.0-31.0); Mean Corpuscular Volume 85.1 fL (78.0-98.0); Mean Platelet Volume 7.9 fL (7.4-10.4); Monocytes 15 % (0-10); Neutrophil 37 % (42-75); PLT Morphology Comment Appears Adequate; Platelet Count 166 thou/uL (130-400); RBC Distribution Width 12.9 % (11.5-14.5); Red Blood Cell (RBC) Count 3.67 mill/uL (4.70-6.10); White Blood Cell (WBC) Count 4.6 thou/uL (4.8-10.8)
[2018-09-05] MEDS ORDERED: Finasteride 5 MG TAB PO SCH ×2 (09:00→21:00)
[2018-09-05] MEDS: Lisinopril 20 MG TAB PO SCH (09:18)
[2018-09-05] MEDS: Hydrochlorothiazide 25 MG TAB PO SCH (09:18)
[2018-09-05] MEDS: Enoxaparin Sodium 40 MG/0.4 ML SYRINGE SC SCH (09:22)
[2018-09-05] MEDS: Pantoprazole 40 MG VIAL IVP SCH ×2 (09:22→21:16)
[2018-09-05] MEDS: hydrALAZINE 25 MG TAB PO SCH ×2 (09:23→21:15)
[2018-09-05] MEDS: Verapamil 120 MG TAB PO SCH ×2 (09:25→21:15)
[2018-09-05 11:35] LABS: Anion Gap 14 mmol/L (10-20); BUN (Urea Nitrogen) 23 mg/dL (8.4-25.7); Calc. Creatinine Clearance 88 mL/min (70-130); Calcium 8.4 mg/dL (7.8-10.44); Carbon Dioxide 22 mmol/L (23-31); Chloride 106 mmol/L (98-107); Estimated GFR-MDRD 89; Glucose 102 mg/dL (80-115); Magnesium 1.9 mg/dL (1.6-2.6); Phosphorus 2.7 mg/dL (2.3-4.7); Potassium 3.4 mmol/L (3.5-5.1); Sodium 139 mmol/L (136-145)
--- NOTE | 2018-09-05 14:29 | PDOC.PN ---
- Subjective Encounter Start Date: 09/05/18 Encounter Start Time: 14:28 Mr. Oliva was seen today in follow-up of SBO. He has been advanced to a clear liquid diet. He is tolerating this so far. He denies abdominal pain. - Objective Resuscitation Status: Resuscitation Status FULL:Full Resuscitation MAR Reviewed: Yes Vital Signs & Weight: Vital Signs (12 hours) Temp Pulse Resp BP BP Pulse Ox 09/05/18 11:00 98.6 F 55 L 16 115/72 95 09/05/18 07:40 97.7 F 64 16 126/80 94 L 09/05/18 03:20 98.8 F 68 16 122/82 94 L Weight Weight 195 lb 15.855 oz I&O: 09/04/18 09/05/18 09/06/18 06:59 06:59 06:59 Intake Total 3498 1910 Output Total 1365 Balance 2133 1910 Result Diagrams: 09/05/18 07:02 09/05/18 11:02 Additional Labs: Accuchecks 09/05/18 09/05/18 09/04/18 10:38 06:52 20:45 POC Glucose 121 H 101 94 09/04/18 15:36 POC Glucose 101 Phys Exam - Physical Examination Respiratory: no wheezing, no rales, no rhonchi, clear to auscultation bilateral Cardiovascular: RRR, no significant murmur, no rub Gastrointestinal: soft, no distention, positive bowel sounds + mild right sided abdominal tenderness Musculoskeletal: no edema Dx/Plan (1) Hypothyroidism Code(s): E03.9 - HYPOTHYROIDISM, UNSPECIFIED Status: Chronic (2) Diabetes mellitus type 2 in nonobese Code(s): E11.9 - TYPE 2 DIABETES MELLITUS WITHOUT COMPLICATIONS Status: Chronic (3) Hypertension Code(s): I10 - ESSENTIAL (PRIMARY) HYPERTENSION Status: Chronic Comment: Added catapress patch since he cannot take po's now. IV Hydralazine PRN. BP has been intermittently very high, but suspect related to discomfort. Better this morning. (4) SBO (small bowel obstruction) Code(s): K56.609 - UNSP INTESTNL OBST, UNSP TO PARTIAL VERSUS COMPLETE OBST Status: Acute Comment: To OR today for expl lap. - Plan * SBO- he has been advanced to clear liquid diet and NG tube has been removed- General Surgery Managing. * HTN- Blood pressure is stable- home medications have been re-started, will Hold HTCZ for now, until he is taking in more orals * DM- Blood glucose is stable * Hypothyroidism- clinically stable
[2018-09-05] MEDS ORDERED: Magnesium 2 GM/50 ML 2 GM in Premix Bag 1 BAG IVPB SCH (19:00)
[2018-09-05] MEDS ORDERED: Potassium Chloride 40 MEQ in Sodium Chloride 0.9% 250 ML 250 ML IVPB SCH (19:00)
[2018-09-05] MEDS ORDERED: Tamsulosin HCl 0.4 MG CAP PO SCH (21:00)
[2018-09-06] MEDS: Levothyroxine Sodium 100 MCG TAB PO SCH (05:33)
[2018-09-06] MEDS: Acetaminophen 500 MG TAB PO SCH ×2 (05:33→12:06)
[2018-09-06 05:47] LABS: #Eosinphils 0.1 thou/uL (0.0-0.7); #Lymphocytes 1.5 thou/uL (1.20-3.40); #Monocytes 0.9 thou/uL (0.11-0.59); #Neutrophils 4.6 thou/uL (1.40-6.50); %Basophils 0.2 % (0.0-1.0); %Eosinophils 1.2 % (0.0-10.0); %Monocytes 13.3 % (0.0-10.0); %Neutrophils 64.3 % (42.0-75.0); Hemoglobin 10.3 g/dL (14.0-18.0); Mean Corpuscular HGB CONC 31.9 g/dL (32.0-36.0); Mean Corpuscular Hemoglobin 27.2 pg (27.0-31.0); Mean Corpuscular Volume 85.4 fL (78.0-98.0); Mean Platelet Volume 7.9 fL (7.4-10.4); Platelet Count 201 thou/uL (130-400); RBC Distribution Width 12.8 % (11.5-14.5); Red Blood Cell (RBC) Count 3.78 mill/uL (4.70-6.10); White Blood Cell (WBC) Count 7.1 thou/uL (4.8-10.8)
[2018-09-06 06:09] LABS: Anion Gap 15 mmol/L (10-20); BUN (Urea Nitrogen) 16 mg/dL (8.4-25.7); Calc. Creatinine Clearance 92 mL/min (70-130); Calcium 8.5 mg/dL (7.8-10.44); Carbon Dioxide 21 mmol/L (23-31); Chloride 105 mmol/L (98-107); Estimated GFR-MDRD Greater than 90; Glucose 104 mg/dL (80-115); Magnesium 2.2 mg/dL (1.6-2.6); Phosphorus 3.1 mg/dL (2.3-4.7); Potassium 3.6 mmol/L (3.5-5.1); Sodium 137 mmol/L (136-145)
[2018-09-06] MEDS: Pantoprazole 40 MG VIAL IVP SCH (08:37)
[2018-09-06] MEDS: Verapamil 120 MG TAB PO SCH (08:37)
[2018-09-06] MEDS: Lisinopril 20 MG TAB PO SCH (08:37)
[2018-09-06] MEDS: hydrALAZINE 25 MG TAB PO SCH (08:37)
[2018-09-06] MEDS: Enoxaparin Sodium 40 MG/0.4 ML SYRINGE SC SCH (08:37)
--- NOTE | 2018-09-06 09:10 | PRG-2 ---
DATE OF SERVICE: 09/05/2018 SUBJECTIVE: Patient is a 67-year-old -[place] gentleman with hospital day #6 six and postop day #3 status post exploratory laparotomy with lysis of adhesions for release of a small-bowel obstruction. There were no acute events overnight and the patient had approximately 450 mL of gastric output via his NG tube overnight per the nurse. This morning on rounds, his reported output between 7 and 11:00 a.m. was approximately 115 mL. The patient states he had 2 bowel movements this morning and is passing gas. He states his pain is well controlled and has no complaints on exam this morning. His only request is for him to be allowed to have a popsicle to eat during the day. PHYSICAL EXAMINATION: VITAL SIGNS: Temperature 97.7 degrees Fahrenheit, pulse 64, respirations 16, O2 sats 94% on room air, blood pressure 126/80. GENERAL: The patient is a well-nourished gentleman sitting up in a chair in his room in no acute distress. HEENT: Normocephalic, atraumatic. CARDIOVASCULAR: Regular rate and rhythm, no murmurs. RESPIRATORY: Lungs clear to auscultation bilaterally with good inspiratory and expiratory effort. ABDOMEN: Moderately distended, but nontender to palpation. Hypoactive bowel sounds are noted on exam. MUSCULOSKELETAL: Patient has full range of motion in all extremities. NEUROLOGIC: Patient is alert and oriented x3. No focal deficits noted. LABORATORY DATA: White blood count 4.6, hemoglobin 9.9, hematocrit 31.2, platelet count 166. Sodium 139, potassium 3.4, chloride 106, bicarbonate 22, BUN 23, creatinine 1.01, blood glucose 102, calcium 8.4, phosphorus 2.7, magnesium 1.9. RADIOLOGIC DATA: There is no new radiologic data for review. ASSESSMENT: 1. Postoperative day #3, status post exploratory laparotomy with lysis of adhesions for a small-bowel obstruction. 2. Acute hypokalemia. 3. Anemia secondary to acute blood loss. 4. History of hypertension. 5. Hypothyroidism. 6. Diabetes mellitus type 2. PLAN: We will remove the patient's NG tube as his output every 4 hours has been well below 300 mL and he had two bowel movements this morning. Will advance diet to clear liquids and stop his IV fluids. Will correct electrolyte abnormalities. Continue with increased activity as tolerated. Will continue scheduled Tylenol for pain control as well as p.r.n. tramadol. We will continue GI and VTE prophylaxis for the remainder of his hospital stay. We will continue to follow electrolytes and hemoglobin level with morning labs. MTDD
--- NOTE | 2018-09-06 14:59 | PRG-2 ---
DATE OF SERVICE: 09/06/2018 SUBJECTIVE: The patient is a 67-year-old -Italian gentleman who is hospital day #7, admitted for a small-bowel obstruction. He is postop day #4 status post exploratory laparotomy and lysis of adhesions to relieve his small bowel obstruction. Diet was advanced to clear liquids yesterday which the patient tolerated well overnight. He denies any nausea or vomiting and states he had a bowel movement this morning and is still passing gas. He denies any pain, just endorses some soreness around his incision sites. He is cautiously eager to have his diet advanced to a regular diet today. PHYSICAL EXAMINATION: VITAL SIGNS: Temperature 98 degrees Fahrenheit, pulse 55, respirations 20, O2 saturation 94% on room air, blood pressure 103/66. GENERAL: The patient was walking out of the restroom and sat on the edge of the bed, in no acute distress. HEENT: Normocephalic, atraumatic. CARDIOVASCULAR: Regular rate and rhythm, no murmurs. LUNGS: Clear to auscultation bilaterally with good inspiratory and expiratory effort. ABDOMEN: Slightly tense secondary to moderate distention. Nontender to palpation. Bowel sounds noted. EXTREMITIES: Full range of motion in all extremities. Neurovascularly intact x4. NEUROLOGIC: The patient is alert and oriented x3. No focal deficits noted. LABORATORY DATA: White blood count 7.1, hemoglobin 10.3, hematocrit 32.3, platelet count 201. Sodium 137, potassium 3.6, chloride 105, bicarbonate 21, BUN 16, creatinine 0.97, blood glucose 104, calcium 8.5, phosphorus 3.1, magnesium 2.2. RADIOLOGIC DATA: There is no new radiologic data for review. ASSESSMENT: 1. Postoperative day #4, status post exploratory laparotomy with lysis of adhesions for small bowel obstruction. 2. Anemia secondary to acute blood loss. 3. Postoperative pain, resolved. 4. History of hypertension. 5. Hypothyroidism. 6. Diabetes mellitus type 2. 7. Anemia secondary to acute blood loss, improving. PLAN: Will advance to regular diet today. Counseled that if a regular diet induces pain and/or nausea or vomiting to deescalate to clear liquid diet. The patient endorses understanding. Will continue with scheduled Tylenol and p.r.n. tramadol for pain control as the patient states he is not having any pain currently. Will continue GI and venous thromboembolism prophylaxis. Will correct electrolyte abnormalities as needed. Will continue to monitor electrolytes and hemoglobin level with daily morning labs. Anticipate discharge in the next 1-2 days pending patient tolerates a regular diet without any issues. The plan was discussed with the trauma attending, Dr. Ruddy Lewis. EDUARDO
[2018-09-06 15:36] VITALS: BP 122/74; TEMP 98.1
--- NOTE | 2018-09-06 16:58 | PDOC.PN ---
- Subjective Encounter Start Date: 09/06/18 Encounter Start Time: 16:56 Mr. Oliva was seen today in follow-up of SBO. He is doing fine, and tolerated a solid diet this evening, He would like to go home. - Objective Resuscitation Status: Resuscitation Status FULL:Full Resuscitation MAR Reviewed: Yes Vital Signs & Weight: Vital Signs (12 hours) Temp Pulse Resp BP BP Pulse Ox 09/06/18 15:20 98.1 F 60 16 122/74 95 09/06/18 11:10 98.0 F 55 L 20 103/66 94 L 09/06/18 08:37 71 123/82 09/06/18 08:30 93 L 09/06/18 07:00 98.2 F 71 24 H 123/82 93 L Weight Weight 195 lb 15.855 oz I&O: 09/05/18 09/06/18 09/07/18 06:59 06:59 06:59 Intake Total 1909 Balance 1909 Result Diagrams: 09/06/18 05:30 09/06/18 05:30 Additional Labs: Accuchecks 09/06/18 09/06/18 09/05/18 11:42 05:25 20:47 POC Glucose 130 H 109 118 H 09/05/18 15:33 POC Glucose 105 Phys Exam - Physical Examination HEENT: PERRLA Respiratory: no wheezing, no rales, no rhonchi, clear to auscultation bilateral Cardiovascular: RRR, no significant murmur, no rub Gastrointestinal: soft, non-tender, no distention, positive bowel sounds Musculoskeletal: no edema Dx/Plan (1) Hypothyroidism Code(s): E03.9 - HYPOTHYROIDISM, UNSPECIFIED Status: Chronic (2) Diabetes mellitus type 2 in nonobese Code(s): E11.9 - TYPE 2 DIABETES MELLITUS WITHOUT COMPLICATIONS Status: Chronic (3) Hypertension Code(s): I10 - ESSENTIAL (PRIMARY) HYPERTENSION Status: Chronic Comment: Added catapress patch since he cannot take po's now. IV Hydralazine PRN. BP has been intermittently very high, but suspect related to discomfort. Better this morning. (4) SBO (small bowel obstruction) Code(s): K56.609 - UNSP INTESTNL OBST, UNSP TO PARTIAL VERSUS COMPLETE OBST Status: Acute Comment: To OR today for expl lap. - Plan * SBO- s/p exploratory lap and lysis of adhesion- he is doing well, tolerating a solid diet. He is stable for discharge home.
--- NOTE | 2018-09-07 00:20 | DIS ---
The patient currently does not have a primary care physician. DATE OF ADMISSION: 08/31/2018 DATE OF DISCHARGE: 09/06/2018 DISCHARGE DISPOSITION: Home. PRIMARY DISCHARGE DIAGNOSES: 1. Small-bowel obstruction. 2. Diabetes mellitus, type 2. 3. Hypertension. 4. Hypothyroidism. DISCHARGE MEDICATIONS: Include verapamil 120 mg twice a day, tramadol 50 mg 1-2 tablets q.6 hours as needed, Flomax 0.4 mg at bedtime, Klor-Con 10 of 15 mEq daily, metformin 1000 mg daily, lisinopril 4 0 mg daily, levothyroxine 100 mcg daily, hydrochlorothiazide 25 mg daily, Apresoline 25 mg twice a da y, glipizide 10 mg daily, aspirin 81 mg a day. CODE STATUS: FULL CODE. ALLERGIES: No known drug allergies. PROCEDURES DONE DURING ADMISSION: The patient had a CT scan of the abdomen and pelvis, which reveale d a high-grade obstruction in the [id number] small bowel, transition favored to be in the left u pper abdomen. The patient had an abdominal ultrasound, showing a small volume of free fluid adjacent to the liver. There was no evidence of cholecystitis or biliary dilatation. Patient had a small constantin wel x-ray on 09/01/2018 showing findings consistent with a high-grade small-bowel obstruction. The p atient had an exploratory laparotomy with lysis of adhesions. HOSPITAL COURSE: Mr. Oliva is a pleasant 67-year-old gentleman who presented to the emergency room w ith complaints of severe right-sided abdominal pain and he was also vomiting as well. He was evaluat ed in an urgent care center and sent to the ER due to concerns for bowel obstruction. CT scan reveal ed a likely bowel obstruction. He was admitted and started on IV hydration and bowel rest and an NG tube was placed. He was seen by General Surgery. The patient was allowed a couple of days to see if the obstruction would resolve spontaneously; however, unfortunately this did not occur. Small bowel x-ray revealed the persistence of the high-grade obstruction and he underwent surgery on 09/02/2018. He had an exploratory laparotomy with lysis of adhesions. It was found that he had an internal her don with incarcerated bowel. This was repaired and the patient had an uneventful postoperative cours e and was subsequently able to be discharged on 09/06/2018 with close outpatient followup with Genera l Surgery as well as with his previous primary care physician.
== END 2018-09-06 17:47 | disposition home or self-care (01) | DRG 336 ==
LOC: ERS 18:24 → SURG B 22:45
PROVIDERS: ADMIT Internal Medicine; ATTEND Internal Medicine
PROC: 0D9670Z Drainage of Stomach with Drainage Device, Via Natural or Artificial Opening (ICD-10-PCS; 2018-08-31)
PROC: 0DN80ZZ Release Small Intestine, Open Approach (ICD-10-PCS; principal; 2018-09-02)
DX: K56.609 Unspecified intestinal obstruction, unspecified as to partial versus complete obstruction (principal); K46.0 Unspecified abdominal hernia with obstruction, without gangrene; N17.9 Acute kidney failure, unspecified; D62 Acute posthemorrhagic anemia; E11.9 Type 2 diabetes mellitus without complications; Z79.84 Long term (current) use of oral hypoglycemic drugs; I10 Essential (primary) hypertension; E03.9 Hypothyroidism, unspecified; Z79.82 Long term (current) use of aspirin; E87.6 Hypokalemia; E83.39 Other disorders of phosphorus metabolism
CPT/HCPCS: 36415; 36416; 74018; 74177; 74250; 76705; 80048; 80053; 80069; 83690; 83735; 84100; 85007; 85025; 85027; 90471; 90662; 93005; 96361; 96374; 96375; C9113; G0008; J0131; J0360; J1335; J1650; J2001; J2270; J2405; J2543; J2550; J2704; J3010; J3480; J7050; S0028

== ENCOUNTER 2018-09-07 15:37 | Inpatient (IN) | payer MEDICARE ==
[2018-09-07] MEDS ORDERED: Pantoprazole 40 MG VIAL ONE (17:15)
[2018-09-07] MEDS ORDERED: Ondansetron HCl/PF 4 MG/2 ML Vial ONE (17:15)
--- NOTE | 2018-09-07 18:48 | RAD ---
KUB AND UPRIGHT AND PA CHEST: 09/07/18 COMPARISON: 09/02/18 exam. HISTORY: bowel obstruction There is continued marked small bowel dilatation. No free air demonstrated. Arthritic changes of the spine and hips are noted. PA CHEST: Bibasilar atelectasis is seen. Heart size is borderline. The aorta is mildly tortuous. IMPRESSION: 1. Bibasilar atelectasis. 2. Findings that would suggest a high grade small bowel obstruction with dilated small bowel loo ps without definitive air within the colon. POS: [facility]
[2018-09-07] MEDS ORDERED: Dextrose 5% in Water 1,000 ML IV PRN (18:50)
[2018-09-07] MEDS ORDERED: Ondansetron HCl/PF 4 MG/2 ML Vial IVP PRN (18:50)
[2018-09-07] MEDS ORDERED: Dextrose 50% Abboject 50 ML SYRINGE SLOW IVP PRN (18:50)
[2018-09-07] MEDS ORDERED: Acetaminophen 1,000 MG in Premix Bag 1 BAG IVPB PRN (18:54)
[2018-09-07] MEDS ORDERED: Insulin Regular 300 UNITS/3 ML VIAL SC PRN (18:55)
[2018-09-07 19:00] LABS: Hemoglobin 11.6 g/dL (14.0-18.0); Mean Corpuscular HGB CONC 31.9 g/dL (32.0-36.0); Mean Corpuscular Volume 84.5 fL (78.0-98.0); Mean Platelet Volume 8.2 fL (7.4-10.4); Platelet Count 252 thou/uL (130-400); RBC Distribution Width 12.9 % (11.5-14.5); White Blood Cell (WBC) Count 7.9 thou/uL (4.8-10.8)
[2018-09-07 19:10] LABS: ALT (SGPT) 41 U/L (8-55); AST (SGOT) 37 U/L (5-34); Albumin 3.7 g/dL (3.4-4.8); Alkaline Phosphatase 73 U/L (40-150); Anion Gap 19 mmol/L (10-20); BUN (Urea Nitrogen) 18 mg/dL (8.4-25.7); Bilirubin, Total 0.8 mg/dL (0.2-1.2); Calc. Creatinine Clearance 0 mL/min (70-130); Calcium 8.8 mg/dL (7.8-10.44); Carbon Dioxide 17 mmol/L (23-31); Chloride 104 mmol/L (98-107); Estimated GFR-MDRD 81; Globulin 3.4 g/dL (2.4-3.5); Glucose 117 mg/dL (80-115); Potassium 3.7 mmol/L (3.5-5.1); Protein, Total 7.1 g/dL (5.8-8.1); Sodium 136 mmol/L (136-145)
[2018-09-07 19:20] LABS: Band 33 % (5-11); Lymphocytes 7 % (21-51); MDiff Complete? YES; Monocytes 7 % (0-10); Neutrophil 53 % (42-75); Nucleated RBC 2 % (0); PLT Morphology Comment Appears Adequate
[2018-09-07 19:54] LABS: Troponin I Less than 0.010 ng/mL (< 0.028)
--- NOTE | 2018-09-07 21:55 | CT ---
CT OF ABDOMEN AND PELVIS PERFORMED WITH CONTRAST ENHANCEMENT: 09/07/18 HISTORY: Small bowel obstruction. Evaluation for ischemic bowel. COMPARISON: 08/31/18 exam. There is some atelectatic changes in the lung bases and a slightly more confluent infiltrative appear ing process of the right middle lobe. There is also some very minimal patchy pneumonitis changes in t he left lower lobe. An NG tube is seen within the stomach. The liver and spleen are normal in size. Pancreas region is unremarkable. Gallbladder is slightly con tracted. Right and left adrenal glands are normal. Right and left kidneys are not obstructed. A small hypodens ity involving the right kidney statistically most likely a cyst. No significant periaortic or mesente lv adenopathy. There is continued small bowel distention. The transition appears to be in the left lower abdomen reg ion. Etiology of it is unclear. I do not see any definitive evidence for any ischemic bowel. Some of the loops of small bowel in the lower quadrant are slightly less distended than on the prior examinat ion with some slight wall thickening but no signs of pneumatosis. There is no free air seen within th e abdomen. Colon is relatively decompressed. I do not see any edema changes within the mesentery. The re is some minimal edema changes in the paraumbilical region but no herniation of bowel. This appears to represent a small focal herniation of mesenteric fat just slightly to the left of midline. No dipti e fluid is seen within the pelvis. Appendix region is normal. IMPRESSION: High grade small bowel obstruction which appears to be more in the mid to distal ileal region without a definite etiology. No definite signs of ischemic change. Some of the small bowel loops in the left lower quadrant are slightly more decompressed than they were on the prior examination. Some slight w all thickening which is probably related to the fact they are so distended now or less distended. No definitive evidence for pneumatosis or free air. POS: [facility]
[2018-09-07 22:37] LABS: Troponin I Less than 0.010 ng/mL (< 0.028)
[2018-09-07] MEDS: Enoxaparin Sodium 40 MG/0.4 ML SYRINGE SC SCH (22:59)
[2018-09-07] MEDS: Sodium Chloride 0.9% 1,000 ML IV SCH (22:59)
--- NOTE | 2018-09-07 23:34 | HP ---
DATE OF ADMISSION: 09/07/2018 HISTORY OF PRESENT ILLNESS: Mr. Oliva is a 67-year-old -Turkish man who is postoperative day #5, status post exploratory laparotomy and lysis of adhesion to resolve incarcerated closed loop sma ll bowel obstruction secondary to internal hernia caused by a single band adhesion. The patient was subsequently discharged home following return of bowel function. He was in fact discharged home only yesterday. He presented to emergency department today complaining of progressive abdominal bloating . He had a bowel movement yesterday which was loose. He did have another bowel movement this mornin g was a small amount and was loose. He passed a little bit of flatus. He admits to some nausea, but no emesis. The patient denies any abdominal pain, fevers, or chills. PAST MEDICAL HISTORY: Pertinent for essential hypertension, type 2 diabetes mellitus, hypothyroidism and recent acute bowel obstruction secondary to internal hernia caused by adhesion. PAST SURGICAL HISTORY: Pertinent for childhood inguinal herniorrhaphy at age 7. Other pertinent deya gical history includes the most recent exploratory laparotomy, which is postoperative day #5 today. SOCIAL HISTORY: The patient lives independently. He denies any cigarette smoking, ethanol or illici t drug abuse. FAMILY HISTORY: Noncontributory for this patient's age. PREHOSPITAL MEDICATIONS: This include aspirin 81 mg p.o. daily, finasteride 5 mg p.o. at bedtime, gl ipizide 10 mg p.o. daily, hydralazine 25 mg p.o. b.i.d., hydrochlorothiazide 25 mg p.o. daily, levoth yroxine 100 mcg p.o. daily, lisinopril 40 mg p.o. daily, metformin 1000 mg p.o. daily, potassium chlo ride 15 mEq p.o. daily, Flomax 0.4 mg p.o. at bedtime, tramadol 50 mg 1-2 p.o. q.6 hours p.r.n. pain, and verapamil 120 mg p.o. b.i.d. ALLERGIES: The patient denies any known drug allergies. REVIEW OF SYSTEMS: A 10-point review of systems is essentially unremarkable except for as stated in past medical history and chief complaint. PHYSICAL EXAMINATION: GENERAL: This reveals a 67-year-old normally developed man who is otherwise coherent and interactive and appears stated age. The patient is alert and oriented x3. He appears to be in no acute distres s at the time of my evaluation. HEENT: Reveals normocephalic and atraumatic. Pupils are equal, round, and reactive to light and acc ommodation. Extraocular muscles are intact bilaterally. No sclerae icterus present. HEART: Reveals regular rate and rhythm, no murmurs or gallops auscultated. LUNGS: Clear to auscultation bilaterally. Breathing regular and unlabored. ABDOMEN: Soft and distended with gas. He has minimal abdominal tenderness to palpation. The midlin e incisional scar is intact, clean, and dry. There is no induration or erythema. He has minimal abd ominal tenderness to palpation. Clearly no gross rebound tenderness present. Liver and spleen nonpa lpable below costal margin. Nasogastric tube was then inserted, returning over a liter of bilious mcclure ccus entericus. EXTREMITIES: Reveals 2+ radial and pedal pulses bilaterally. Ankle edema is present. NEUROLOGIC: Reveals no focal deficits present. LABORATORY DATA: Laboratory studies have been ordered and is pending at the time of this dictation. Acute abdominal series was obtained, this shows multiple distended loops of small bowel with air flu id levels. IMPRESSION: 1. Postoperative day #5, status post exploratory laparotomy and lysis of adhesions for closed loop s mall bowel obstruction. 2. Acute recurrent small-bowel obstruction versus adynamic ileus. PLAN: 1. Continue with bowel rest with nasogastric tube decompression and IV hydration. 2. Await CT scanning of the abdomen and pelvis to rule out any evidence of bowel necrosis for which the patient is at risk. There is no acute surgical indication for this patient at this time; however , serial physical examinations, especially if supported by radiographic studies may warrant surgical reexploration at that time. 3. The above findings and plan discussed with the patient who indicates understanding of the informa tion given. 4. I was advised the patient to continues to increase his activity especially with ambulation. We w ill initiate prophylaxis against gastritis and VTE. The patient has given consent for this admission .
[2018-09-08 06:07] LABS: ALT (SGPT) 36 U/L (8-55); AST (SGOT) 27 U/L (5-34); Alkaline Phosphatase 58 U/L (40-150); Anion Gap 13 mmol/L (10-20); BUN (Urea Nitrogen) 16 mg/dL (8.4-25.7); Bilirubin, Total 0.7 mg/dL (0.2-1.2); Calc. Creatinine Clearance 0 mL/min (70-130); Carbon Dioxide 20 mmol/L (23-31); Chloride 106 mmol/L (98-107); Estimated GFR-MDRD 80; Globulin 2.8 g/dL (2.4-3.5); Glucose 108 mg/dL (80-115); Magnesium 1.8 mg/dL (1.6-2.6); Phosphorus 2.9 mg/dL (2.3-4.7); Potassium 3.4 mmol/L (3.5-5.1); Protein, Total 5.8 g/dL (5.8-8.1); Sodium 136 mmol/L (136-145)
[2018-09-08 07:00] LABS: Band 10 % (5-11); Hemoglobin 9.9 g/dL (14.0-18.0); Lymphocytes 40 % (21-51); MDiff Complete? YES; Mean Corpuscular Volume 84.3 fL (78.0-98.0); Mean Platelet Volume 7.6 fL (7.4-10.4); Monocytes 19 % (0-10); Neutrophil 31 % (42-75); PLT Morphology Comment Appears Adequate; Platelet Count 211 thou/uL (130-400); RBC Distribution Width 12.8 % (11.5-14.5); RBC Morphology Normal; Red Blood Cell (RBC) Count 3.66 mill/uL (4.70-6.10); White Blood Cell (WBC) Count 5.6 thou/uL (4.8-10.8)
[2018-09-08] MEDS: Sodium Chloride 0.9% 1,000 ML IV SCH ×2 (07:15→19:35)
--- NOTE | 2018-09-08 15:12 | RAD ---
SMALL BOWEL FOLLOW-THROUGH: CLINICAL HISTORY: Bowel obstruction. Nausea and vomiting. Abdominal pain. FINDINGS: Upon contrast administration, via the patient's indwelling enteric catheter, there is diffuse opacifi cation of dilated, contrast opacified small bowel loops. By two hours, there is contrast opacificati on within portions of the colon. The security patrol driver image did reveal residual contrast within the rectum. IMPRESSION: Persistent dilatation of small bowel loops, although there is contrast opacification of the colon on the two hour image, indicating a partial small bowel obstruction. POS: GISELE
[2018-09-08] MEDS ORDERED: MD-Gastroview 120 ML BOT ONE (15:14)
[2018-09-08] MEDS: Enoxaparin Sodium 40 MG/0.4 ML SYRINGE SC SCH (20:46)
--- NOTE | 2018-09-08 20:57 | PRG ---
DATE OF SERVICE: 09/08/2018 SUBJECTIVE: The patient is hospital day #2 status post admission for possible acute recurrence of hi s small-bowel obstruction versus an adynamic ileus. The patient presented to the Emergency Departmen t yesterday with nausea, vomiting. CT showed possible high-grade small-bowel obstruction once again. The patient is currently postop day #6 status post exploratory laparotomy and lysis of adhesions fo r a closed loop small-bowel obstruction. Overnight, the patient had no issues. He tolerated his NG tube. He had 800 mL of gastric drainage and did have a bowel movement, and this morning, reports pas sing gas. The patient also denies nausea or pain. PHYSICAL EXAMINATION: VITAL SIGNS: Temperature is 98, heart rate 73, blood pressure 142/90, respirations 18, oxygen satura tion is 96% on room air. GENERAL: The patient is resting comfortably, sitting beside his bed. He is awake, alert, and orient ed x3. HEENT: Unremarkable. The patient has a nasogastric tube that appears to be functioning properly. LUNGS: Clear to auscultation bilaterally. HEART: Regular rate and rhythm. ABDOMEN: Soft, flat, nontender with hypoactive bowel sounds. EXTREMITIES: Neurovascularly intact x4. LABORATORY FINDINGS: White blood cell count 5.6, hemoglobin 9.9, hematocrit 30.8, platelets 211. So dium 136, potassium 3.4, chloride 106, CO2 of 20, BUN 16, creatinine 1.11, glucose 108. LFTs are unr emarkable. Magnesium 1.8, phosphorus 2.9. There are no radiographs to review this morning. ASSESSMENT AND PLAN: 1. Postop day #6 status post exploratory laparotomy and lysis of adhesions for closed loop small-bow el obstruction. 2. Acute recurrent small-bowel obstruction versus adynamic ileus. We will order a small-bowel follo w through today. Continue NG tube suctioning and await the results of that exam. The evaluation and examination were done with Dr. Levy during rounds this morning.
[2018-09-09] MEDS: Sodium Chloride 0.9% 1,000 ML IV SCH ×4 (03:39→13:44)
[2018-09-09 06:32] LABS: #Eosinphils 0.1 thou/uL (0.0-0.7); #Neutrophils 4.3 thou/uL (1.40-6.50); %Lymphocytes 26.5 % (21.0-51.0); %Monocytes 13.8 % (0.0-10.0); %Neutrophils 58.7 % (42.0-75.0); Hemoglobin 10.2 g/dL (14.0-18.0); Mean Corpuscular HGB CONC 31.7 g/dL (32.0-36.0); Mean Corpuscular Hemoglobin 26.9 pg (27.0-31.0); Mean Corpuscular Volume 84.9 fL (78.0-98.0); Platelet Count 304 thou/uL (130-400); RBC Distribution Width 13.1 % (11.5-14.5); Red Blood Cell (RBC) Count 3.77 mill/uL (4.70-6.10); White Blood Cell (WBC) Count 7.4 thou/uL (4.8-10.8)
[2018-09-09 06:42] LABS: Anion Gap 16 mmol/L (10-20); BUN (Urea Nitrogen) 17 mg/dL (8.4-25.7); Calc. Creatinine Clearance 0 mL/min (70-130); Calcium 8.1 mg/dL (7.8-10.44); Carbon Dioxide 19 mmol/L (23-31); Chloride 110 mmol/L (98-107); Estimated GFR-MDRD 87; Glucose 84 mg/dL (80-115); Magnesium 1.9 mg/dL (1.6-2.6); Phosphorus 2.7 mg/dL (2.3-4.7); Potassium 3.3 mmol/L (3.5-5.1); Sodium 142 mmol/L (136-145)
--- NOTE | 2018-09-09 10:31 | PRG ---
DATE OF SERVICE: 09/09/2018 The patient is hospital day #3 status post readmission for possible recurrence of a small-bowel obstr uction versus adynamic ileus. The patient yesterday underwent his small bowel follow through which s howed partial small-bowel obstruction. The patient had no issues overnight. He is tolerating his NG tube. He has had two bowel movements and is passing some gas. 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 PHYSICAL EXAMINATION: VITAL SIGNS: Temperature is 96.5, heart rate is 67, blood pressure 159/85, respirations 14, oxygen s aturation 95% on room air. GENERAL: The patient is resting comfortably in a chair beside his bed. He is awake, alert, and orie nted x4. HEENT: Unremarkable. The patient has a functioning NG tube. LUNGS: Clear to auscultation with good inspiratory and expiratory effort. HEART: Regular rate and rhythm. ABDOMEN: Soft, flat, nontender with hypoactive bowel sounds. The patient's abdomen appears less dis tended this morning and the patient agrees that it feels and looks to him be less distended. EXTREMITIES: Neurovascularly intact x4. LABORATORY DATA: White blood cell count 7.4, hemoglobin 10.2, hematocrit 32.0, platelets 304. Sodiu m 142, potassium 3.3, chloride 110, CO2 of 19, BUN 17, creatinine 1.03, glucose 87. There are no rad iographs to review this morning. ASSESSMENT AND PLAN: 1. Status post exploratory laparotomy with lysis of adhesions for closed loop small bowel obstructio n that the patient underwent seven days ago. 2. Acute recurrent small-bowel obstruction versus adynamic ileus. Plan will be to continue supportive care, bowel rest to include NG tube suctioning. Depending on how the patient feels today, we will likely start him on clears around the lunchtime frame per discussio n with Dr. Levy.
[2018-09-09] MEDS: Tamsulosin HCl 0.4 MG CAP PO SCH (20:11)
[2018-09-09] MEDS: Verapamil 120 MG TAB PO SCH (20:11)
[2018-09-09] MEDS: Finasteride 5 MG TAB PO SCH (20:11)
[2018-09-09] MEDS: hydrALAZINE 25 MG TAB PO SCH (20:11)
[2018-09-09] MEDS: Enoxaparin Sodium 40 MG/0.4 ML SYRINGE SC SCH (20:12)
[2018-09-10] MEDS: Sodium Chloride 0.9% 1,000 ML IV SCH ×2 (00:47→09:50)
[2018-09-10 07:42] LABS: Anion Gap 12 mmol/L (10-20); BUN (Urea Nitrogen) 11 mg/dL (8.4-25.7); Calc. Creatinine Clearance 0 mL/min (70-130); Calcium 8.1 mg/dL (7.8-10.44); Carbon Dioxide 21 mmol/L (23-31); Chloride 107 mmol/L (98-107); Estimated GFR-MDRD Greater than 90; Glucose 149 mg/dL (80-115); Magnesium 1.9 mg/dL (1.6-2.6); Phosphorus 2.3 mg/dL (2.3-4.7); Potassium 3.2 mmol/L (3.5-5.1); Sodium 137 mmol/L (136-145)
[2018-09-10] MEDS ORDERED: Potassium Phosphate 30 MMOL in Sodium Chloride 0.9% 500 ML IVPB SCH (09:30)
[2018-09-10] MEDS: Lisinopril 10 MG TAB PO SCH (09:44)
[2018-09-10] MEDS: Levothyroxine Sodium 100 MCG TAB PO SCH (09:46)
[2018-09-10] MEDS: Hydrochlorothiazide 25 MG TAB PO SCH (09:46)
[2018-09-10] MEDS: hydrALAZINE 25 MG TAB PO SCH ×2 (09:46→21:14)
[2018-09-10] MEDS: Verapamil 120 MG TAB PO SCH ×2 (09:47→21:31)
[2018-09-10] MEDS ORDERED: Diabetic Tussin 200 MG/10 ML UDCUP PO PRN (15:32)
--- NOTE | 2018-09-10 15:46 | PRG ---
DATE OF SERVICE: 09/10/2018 SUBJECTIVE: Mr. Oliva is a 67-year-old -Congolese man who is postoperative #8 status post expl oratory laparotomy with lysis of adhesions for acute closed loop small-bowel obstruction. The patien t reports passing flatus today and has had two loose bowel movements over the last 24 hours. Nasogastric tube returns moderate amount of slightly bilious tinge effluent. The patient reports jovanna quate pain control. PHYSICAL EXAMINATION: VITAL SIGNS: Today includes blood pressure 155/88, pulse is 71, respiratory rate is 12, temperature is 98.9 degrees Fahrenheit and oxygen saturation is 97% on room air. HEART: Reveals regular rate and rhythm, no murmurs or gallops auscultated. LUNGS: Clear to auscultation bilaterally. His breathing is regular and unlabored. ABDOMEN: Soft, moderately distended. Incision is intact, clean, and dry. He has no gross peritonea l signs on examination. NEUROLOGIC: Examination reveals no focal deficits present. LABORATORY DATA: Pertinent laboratory findings today includes metabolic profile; sodium 137, potassi um 3.2, chloride is 107, bicarbonate 21, BUN 11, creatinine 0.89, glucose 149, magnesium 1.9, phospho erica is 2.3. IMPRESSION: 1. Postoperative day #8 status post exploratory laparotomy with lysis of adhesions 2. Resolved small-bowel obstruction. 3. Acute hypomagnesemia. 4. Acute hypophosphatemia. 5. Acute hypokalemia. PLAN: 1. Correct abnormal electrolytes. 2. We will discontinue nasogastric tube and bowel rest. The patient will be started on clear liquid diet and will encourage increase activity. Above findings and plan have been discussed with the patient who indicates understanding of the infor mation given. I have answered his questions.
[2018-09-10] MEDS: Enoxaparin Sodium 40 MG/0.4 ML SYRINGE SC SCH (21:13)
[2018-09-10] MEDS: Tamsulosin HCl 0.4 MG CAP PO SCH (21:17)
[2018-09-10] MEDS: Finasteride 5 MG TAB PO SCH (21:17)
[2018-09-10] MEDS ORDERED: Verapamil 120 MG TAB PO SCH (21:45)
[2018-09-11] MEDS: Verapamil 120 MG TAB PO SCH ×2 (00:13→08:47)
[2018-09-11] MEDS: Sodium Chloride 0.9% 1,000 ML IV SCH ×2 (01:05→11:41)
[2018-09-11 06:58] LABS: Anion Gap 10 mmol/L (10-20); BUN (Urea Nitrogen) 6 mg/dL (8.4-25.7); Calc. Creatinine Clearance 0 mL/min (70-130); Calcium 7.7 mg/dL (7.8-10.44); Carbon Dioxide 25 mmol/L (23-31); Chloride 104 mmol/L (98-107); Estimated GFR-MDRD Greater than 90; Glucose 120 mg/dL (80-115); Magnesium 1.7 mg/dL (1.6-2.6); Phosphorus 3.2 mg/dL (2.3-4.7); Potassium 2.8 mmol/L (3.5-5.1); Sodium 136 mmol/L (136-145)
[2018-09-11] MEDS ORDERED: Magnesium 2 GM/50 ML 2 GM in Premix Bag 1 BAG IVPB SCH (07:15)
[2018-09-11] MEDS: Lisinopril 10 MG TAB PO SCH (08:17)
[2018-09-11] MEDS: Potassium Chloride 20 MEQ in Premix Bag 1 BAG IVPB SCH ×2 (08:17→11:06)
[2018-09-11] MEDS: hydrALAZINE 25 MG TAB PO SCH ×2 (08:18→20:36)
[2018-09-11] MEDS: Levothyroxine Sodium 100 MCG TAB PO SCH (08:18)
[2018-09-11] MEDS: Hydrochlorothiazide 25 MG TAB PO SCH (08:18)
[2018-09-11 11:43] VITALS: BMI 30.7
--- NOTE | 2018-09-11 12:40 | PRG ---
DATE OF SERVICE: 09/11/2018 SUBJECTIVE: Mr. Oliva is a 67-year-old -Q[place] man who is postoperative day #9 today, statu s post exploratory laparotomy with lysis of adhesions. He is post-admission day #4 for the admission following acute onset small-bowel obstruction. The patient was placed on clear liquid diet yesterda y following discontinuation of bowel rest and nasogastric tube decompression. Overnight, he reports frequent flatulence and small bowel movements. He denies any nausea or vomitin g. He has tolerated clear liquid diet overnight. Urinary output has been adequate. OBJECTIVE: VITAL SIGNS: This morning includes blood pressure 138/73, pulse 68, respiratory rate is 12, maximum temperature in the last 24 hours 99.6 degrees Fahrenheit, oxygen saturation is 96% on room air. HEENT: No jugular venous distention noted. HEART: Reveals regular rate and rhythm, no murmurs or gallops auscultated. CHEST: Clear to auscultation bilaterally. Breathing is regular and unlabored. ABDOMEN: Soft, moderately distended, but nontender to palpation. Incision is intact, clean, and dry . Bowel sounds in all four quadrants appear normoactive. EXTREMITIES: Reveals 2+ radial and pedal pulses bilaterally. No ankle edema present. NEUROLOGIC: Reveals no focal deficits present. input. LABORATORY FINDINGS: Today include metabolic profile: Sodium 136, potassium is 2.8, chloride is 104 , bicarbonate is 25, BUN 6, creatinine 0.87, glucose is 120, magnesium 1.7, phosphorus 3.2. IMPRESSION: 1. Post-admission day #4 with now resolved acute small-bowel obstruction. 2. Acute hypokalemia. 3. Acute hypomagnesemia. PLAN: 1. Correct abnormal electrolytes. 2. Diet will be advanced to general. 3. The patient is encouraged to continue to ambulate ad deni. 4. If he tolerates general diet, we will anticipate discharge within the next 24 hours, especially i f no recurrent abdominal pain or intolerance to oral intake. 5. Above findings and plan discussed with the patient who indicates understanding of information giv en. I have answered his questions.
[2018-09-11] MEDS ORDERED: metFORMIN 500 MG TAB PO SCH (17:45)
[2018-09-11] MEDS ORDERED: glipiZIDE 10 MG TAB PO SCH (17:45)
[2018-09-11] MEDS: Enoxaparin Sodium 40 MG/0.4 ML SYRINGE SC SCH (20:34)
[2018-09-11] MEDS: Tamsulosin HCl 0.4 MG CAP PO SCH (20:35)
[2018-09-11] MEDS: Finasteride 5 MG TAB PO SCH (20:38)
[2018-09-11] MEDS ORDERED: Verapamil 120 MG TAB PO SCH (21:00)
[2018-09-12 05:00] LABS: #Eosinphils 0.1 thou/uL (0.0-0.7); #Monocytes 0.9 thou/uL (0.11-0.59); #Neutrophils 7.5 thou/uL (1.40-6.50); %Basophils 0.4 % (0.0-1.0); %Lymphocytes 18.7 % (21.0-51.0); %Monocytes 8.2 % (0.0-10.0); %Neutrophils 71.6 % (42.0-75.0); Hemoglobin 10.4 g/dL (14.0-18.0); Mean Corpuscular HGB CONC 32.2 g/dL (32.0-36.0); Mean Corpuscular Volume 83.8 fL (78.0-98.0); Mean Platelet Volume 7.5 fL (7.4-10.4); Platelet Count 375 thou/uL (130-400); RBC Distribution Width 12.8 % (11.5-14.5); Red Blood Cell (RBC) Count 3.86 mill/uL (4.70-6.10); White Blood Cell (WBC) Count 10.5 thou/uL (4.8-10.8)
[2018-09-12 05:04] LABS: Anion Gap 12 mmol/L (10-20); BUN (Urea Nitrogen) 8 mg/dL (8.4-25.7); Calc. Creatinine Clearance 99 mL/min (70-130); Calcium 8.2 mg/dL (7.8-10.44); Carbon Dioxide 27 mmol/L (23-31); Chloride 101 mmol/L (98-107); Estimated GFR-MDRD Greater than 90; Glucose 112 mg/dL (80-115); Magnesium 1.9 mg/dL (1.6-2.6); Phosphorus 3.2 mg/dL (2.3-4.7); Sodium 137 mmol/L (136-145)
[2018-09-12 05:10] LABS: Potassium 2.9 mmol/L (3.5-5.1)
[2018-09-12] MEDS ORDERED: glipiZIDE 10 MG TAB PO SCH (07:30)
[2018-09-12] MEDS ORDERED: glipiZIDE 5 MG TAB PO SCH (07:30)
[2018-09-12] MEDS ORDERED: metFORMIN 500 MG TAB PO SCH (08:00)
[2018-09-12] MEDS ORDERED: Potassium Chloride 20 MEQ TAB PO SCH (08:00)
[2018-09-12] MEDS ORDERED: Magnesium Oxide 400 MG TAB PO SCH (09:00)
[2018-09-12] MEDS: hydrALAZINE 25 MG TAB PO SCH (09:38)
[2018-09-12] MEDS: Lisinopril 10 MG TAB PO SCH (09:39)
[2018-09-12] MEDS: Hydrochlorothiazide 25 MG TAB PO SCH (09:39)
[2018-09-12] MEDS: Levothyroxine Sodium 100 MCG TAB PO SCH (09:39)
[2018-09-12] MEDS: Verapamil 120 MG TAB PO SCH (09:41)
[2018-09-12 11:22] VITALS: BP 122/73; TEMP 98.8
--- NOTE | 2018-09-12 20:11 | DIS ---
DATE OF ADMISSION: 09/07/2018 DATE OF DISCHARGE: 09/12/2018 ADMITTING DIAGNOSIS: Acute small-bowel obstruction. DISCHARGE DIAGNOSES: 1. Acute small-bowel obstruction, resolved. 2. Acute hypomagnesemia and acute hypokalemia, resolving. HOSPITAL COURSE: A 67-year-old -[place] man who is postoperative day #10 today status post e xploratory laparotomy with lysis of adhesions for acute small-bowel obstruction of closed loop type. The patient was readmitted within 24 hours of previous discharge with acute onset emesis and abdomin al distention. Clinical and radiographic examination was consistent with acute small-bowel obstructi on which was managed with bowel rest, nasogastric tube decompression and IV hydration. Once the farhan l function returned, nasogastric tube was discontinued. The patient was placed on a clear liquid t which he tolerated. Over the last 24 hours, he has been on a general diet. He is having multiple loose bowel movements and passing flatus frequently. He denies any abdominal p ain today. He denies any nausea. He has remained hemodynamically stable and afebrile throughout thi s admission. Laboratory studies today includes CBC with 10,500 white blood cells, hemoglobin and hem atocrit 10.4 and 32.3 respectively. Platelet count 375,000. His metabolic profile today included so dium 137, potassium 2.9, chloride is 101, bicarbonate is 27, BUN is 8, creatinine 0.90, glucose 112, magnesium 1.9 and phosphorus is 3.2. The patient was discharged home today to follow up with me in the clinic in 1 week with repeat basic metabolic profile, magnesium and phosphorus. He is encouraged to ambulate daily to avoid complicatio ns of venous thromboembolism. He is to resume all his prehospital medications as prescribed by his [facility] physician. Additionally, he is given a prescription for potassium chloride 40 mEq and ma gnesium oxide 400 mg, both to be taken 1 p.o. daily for 7 days. He is to call me with any questions or problems including intolerance to oral intake, return of abdominal pain, fever in excess of 101 de grees Fahrenheit or abdominal distention. Instructions were given to the patient in presence of his nurse. The patient indicates understanding of the information given. He has expressed gratitude for the care and nurturing during this hospita lization.
== END 2018-09-12 14:40 | disposition home or self-care (01) | DRG 390 ==
LOC: ERS 15:37 → SURG A 18:15
PROVIDERS: ADMIT Surgery; ATTEND Surgery
DX: K56.699 Other intestinal obstruction unspecified as to partial versus complete obstruction (principal); Z98.890 Other specified postprocedural states; E87.6 Hypokalemia; E83.42 Hypomagnesemia; E83.39 Other disorders of phosphorus metabolism; I10 Essential (primary) hypertension; E11.9 Type 2 diabetes mellitus without complications; E03.9 Hypothyroidism, unspecified; Z79.84 Long term (current) use of oral hypoglycemic drugs
CPT/HCPCS: 36415; 36416; 74022; 74177; 74250; 80048; 80053; 83605; 83735; 84100; 84484; 85025; 96374; 96375; C9113; J0131; J1650; J2405; J3480; J7050

== ENCOUNTER 2019-03-29 07:18 | Outpatient (CLI) | payer MEDICARE ==
--- NOTE | 2019-03-29 08:34 | CT ---
CONTRAST ENHANCED CTA CHEST: HISTORY: History of aortic valve enlargement. FINDINGS: Contrast-enhanced CTA chest performed. 2-D and 3-D reconstruction images performed on an independent 3-D workstation. CTA chest demonstrates the lung parenchyma to be grossly unremarkable with no evidence of masses or l esions. No evidence of pulmonary edema seen. No evidence of significant cardiomegaly seen. The distal esophagus is somewhat thickened concerning for esophagitis, possible distal esophageal mas s correlate with direct visualization. No evidence of filling defects seen in the pulmonary arteries to suggest pulmonary emboli. Left hilar lymph node calcification seen. The aorta demonstrates ascending aortic diameter of approximately 3.6 cm. The 3 valves of the aortic valve were visualized. The right and left cusps of the valve are unremarkable. The noncoronary cusp appears to be asymmetrically enlarged. No definite evidence of aortic valve calcification seen. 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 Transcribed Date/Time: 03/29/2019 8:36 AM
[2019-03-29] MEDS ORDERED: Iopamidol 370 76% 100 ML VIAL ONE (16:18)
== END 2019-03-29 07:19 | disposition home or self-care (01) ==
LOC: CT 07:18
PROVIDERS: ATTEND Physician Assistant
DX: I35.8 Other nonrheumatic aortic valve disorders (principal)
CPT/HCPCS: 71275; 82565; Q9967

== ENCOUNTER 2020-05-20 14:30 | Outpatient (CLI) | payer MEDICARE ==
[2020-05-20] MEDS ORDERED: Iopamidol-370 76% 500 ML 1 ML ONE (15:55)
--- NOTE | 2020-05-20 16:14 | CT ---
CT CHEST WITH CONTRAST: 05/20/20 INDICATIONS: Aneurysm is given for the reason for exam. COMPARISON: Comparison made to CTA chest 03/29/19. That exam described asymmetric enlargement of the noncoronary cusp of the aortic valve. No aneurysm w as described. FINDINGS: Aortic measurements is noted below: Diameter at the aortic root at the sinus of Valsalva: 4.4 cm. This is mildly dilated. Sinotubular diameter: 3.5 cm. This is upper normal. Ascending aorta: 3.3 cm. This is within normal range for patient's sex and age. Upper descending thoracic aorta: 2.8 cm. This is within normal range. The aortic valve cusp remain mildly asymmetric with the noncoronary cusps and the right coronary cusp s being asymmetrically larger than the left coronary cusps. The thoracic aorta shows no evidence of dissection. The pulmonary arteries are opacified and there is no evidence of proximal pulmonary embolus. The lung alva are clear. No infiltrate or effusion. There is some mild bronchiectasis in the lower lobes posteriorly. Also mild right middle lobe bronchi ectasis. Images through upper abdomen unremarkable. Thoracic vertebrae maintain height and alignment with degenerative spurring. IMPRESSION: Mild prominence of aortic root with dimensions given above. Asymmetric leaflets of aortic valve again noted. No acute interval change from prior exam. POS: AH
== END 2020-05-20 14:31 | disposition home or self-care (01) ==
LOC: BICCT 14:30
PROVIDERS: ATTEND Internal Medicine Cardiovascular Disease
DX: I72.9 Aneurysm of unspecified site (principal); I10 Essential (primary) hypertension; I35.8 Other nonrheumatic aortic valve disorders
CPT/HCPCS: 71260; 82565; Q9967

== ENCOUNTER 2021-03-29 07:49 | Outpatient (CLI) | payer MEDICARE ==
[2021-03-29] MEDS ORDERED: Iopamidol 370 76% 100 ML VIAL ONE (10:34)
== END 2021-03-29 07:50 | disposition home or self-care (01) ==
LOC: CT 07:49
PROVIDERS: ATTEND Internal Medicine Cardiovascular Disease
DX: I71.2 Thoracic aortic aneurysm, without rupture (principal)
CPT/HCPCS: 71260; 82565; Q9967

== ENCOUNTER 2022-03-24 07:46 | Outpatient (CLI) | payer MEDICARE | END 2022-03-24 07:47 | disposition home or self-care (01) | LOC: BICCT 07:46 | PROVIDERS: ATTEND Internal Medicine Cardiovascular Disease | DX: I71.2 Thoracic aortic aneurysm, without rupture (principal) | CPT/HCPCS: 71275; 82565 ==

== ENCOUNTER 2023-07-10 07:29 | Outpatient (CLI) | payer MEDICARE ==
[2023-07-10] MEDS ORDERED: Iopamidol-370 76% 500 ML MDV (1 ML CHARGE) ONE (09:33)
== END 2023-07-10 07:30 | disposition home or self-care (01) ==
LOC: BICCT 07:29
PROVIDERS: ATTEND Physician Assistant
DX: I71.20 Thoracic aortic aneurysm, without rupture, unspecified (principal)
CPT/HCPCS: 71275; 82565; Q9967